=== PATIENT | male | born 1955 | race Caucasian/White ===

== ENCOUNTER 2020-01-07 08:26 | Outpatient (CLI) | payer MEDICARE, SELFPAY ==
--- NOTE | ~2020-01-07 | CT_ITS ---
EXAMINATION:CT chest wo con DATE: 01/07/2020 08:52 INDICATION: Pulmonary nodule. TECHNIQUE: Computed tomography (CT) of the chest was performed without intravenous contrast. Automate d exposure control and iterative reconstruction technique were employed. The dose-length product (DLP ) was 184.89 mGy-cm. COMPARISON: Chest CT 01/16/2019, CT abdomen and pelvis 06/09/2018 FINDINGS: There is mild emphysema. There is a 4 mm nodule in right lower lobe, stable from 06/09/2018 . There is mild atelectasis bilaterally. There are a few scattered 2-3 mm pulmonary nodules, stable f rom 01/16/2019. No pleural effusion. The heart size is normal. There are coronary artery calcification s. No pericardial effusion. There are changes of coronary artery bypass grafting. There is mild thora cic spondylosis. IMPRESSION: 1. Stable small pulmonary nodules, likely benign. 2. Mild emphysema. Reviewed, dictated and finalized at location A.
== END 2020-01-07 08:27 | disposition home or self-care (01) ==
PROVIDERS: PCP Internal Medicine; Visit Provider Internal Medicine Pulmonary Disease
DX: R91.1 Solitary pulmonary nodule (principal)
CPT/HCPCS: 71250

== ENCOUNTER 2020-02-18 16:47 | Outpatient (CLI) | payer MEDICARE, SELFPAY ==
--- NOTE | ~2020-02-18 | XR_ITS ---
XR chest 2V DATE: 02/18/2020 17:07 INDICATION: Shortness of breath for 2 weeks. Open heart surgery in June. Possible lung nodules. TECHNIQUE: PA and lateral views COMPARISON: 01/07/2020 CT chest FINDINGS: Status post sternotomy/CABG. Normal heart size. No hilar or mediastinal enlargement. No pulmonary infiltrate or consolidation, pleural effusion or pulmonary vascular congestion or pneumo thorax. IMPRESSION: No active cardiopulmonary disease Reviewed, dictated and finalized at location A.
[2020-02-18 17:03] LABS: Basophils Absolute Auto 0.03 K/mm3 (0.00-0.10); Basophils Percent Auto 0.5 % (0.0-1.0); Eosinophils Absolute Auto 0.13 K/mm3 (0.02-0.50); Eosinophils Percent Auto 2.3 % (1.0-6.0); Hematocrit 44.6 % (37.0-46.0); Hemoglobin 14.9 g/dL (12.4-15.3); Immature Granulocyte Absolute 0.01 K/mm3 (0.00-0.00); Immature Granulocyte Percent A 0.2 % (0.0-0.0); Lymphocytes Absolute Auto 1.63 K/mm3 (1.10-4.50); Lymphocytes Percent Auto 28.4 % (18.0-42.0); Mean Corpuscular HGB Conc 33.4 g/dL (32.0-36.0); Mean Corpuscular Hemoglobin 30.5 pg (27.0-31.0); Mean Corpuscular Volume 91.2 fL (78.0-102.0); Mean Platelet Volume 10.2 fl (8.7-11.0); Monocytes Absolute Auto 0.81 K/mm3 (0.10-0.90); Monocytes Percent Auto 14.1 % (2.0-11.0); Neutrophils Absolute Auto 3.1 K/mm3 (1.7-7.2); Neutrophils Percent Auto 54.5 % (50.0-70.0); Platelet Count Result 200 K/mm3 (150-420); Red Blood Count 4.89 M/mm3 (4.70-6.10); Red Cell Distribution Width 13.6 % (11.6-14.4); White Blood Count 5.7 K/mm3 (4.8-10.8)
[2020-02-18 17:19] LABS: Alanine Aminotransferase 26 U/L (16-63); Albumin Level 3.8 g/dL (3.4-5.0); Alkaline Phosphatase 56 U/L (46-116); Anion Gap 12.2 mmol/L (7-16); Aspartate Amino Transferase 14 U/L (15-37); Bilirubin,Total 0.5 mg/dL (0.00-1.00); Blood Urea Nitrogen 21 mg/dL (7-18); Calcium 8.8 mg/dL (8.5-10.1); Carbon Dioxide 29 mmol/L (21-32); Chloride 103 mmol/L (98-108); D Dimer 0.85 mg/L (0.19-0.50); Estimated Glomerular Filt Rate > 60; Glucose 95 mg/dL (70-99); Osmolality Calculated 293 mOsm/kg (285-295); Potassium 4.2 mmol/L (3.5-5.1); Sodium 140 mmol/L (136-145); Total Protein 7.6 g/dL (6.4-8.2)
--- NOTE | 2020-02-18 17:30 | ECG_ITS ---
Measurements Intervals [place] Rate: 56 P: 10 AK: 190 QRS: 17 QRSD: 103 T: 3 QT: 411 QTc: 399 Interpretive Statements SINUS BRADYCARDIA DELAYED PRECORDIAL R/S TRANSITION INFERIOR INFARCT, AGE INDETERMINATE BORDERLINE T WAVE ABNORMALITY- ANTERIOR LEADS ABNORMAL ECG Electronically Signed On 02-19-2020 8:39:12 CDT by Zack Aragon D.O.
[2020-02-18 17:35] LABS: BNP 54.4 pg/mL (0-100)
== END 2020-02-18 16:48 | disposition home or self-care (01) ==
LOC: CHSLAB 16:51
PROVIDERS: PCP Internal Medicine; Visit Provider Internal Medicine
DX: R06.00 Dyspnea, unspecified (principal); I25.10 Atherosclerotic heart disease of native coronary artery without angina pectoris; Z95.1 Presence of aortocoronary bypass graft
CPT/HCPCS: 36415; 71046; 80053; 83880; 85025; 85380; 93005

== ENCOUNTER 2020-02-19 12:00 | Outpatient (CLI) | payer MEDICARE, SELFPAY ==
--- NOTE | ~2020-02-19 | CT_ITS ---
EXAMINATION: CTA chest PE protocol EXAM DATE: 02/19/2020 12:54 INDICATION: Shortness of breath and positive d-dimer. Nodule. TECHNIQUE: Spiral CTA of the chest (pulmonary arteries) was performed with 100 cc Omnipaque 350 intr avenous contrast injection. Images were acquired during the pulmonary arterial phase. Coronal maxi mum intensity projection 3D-reconstructions were created by the technologist on dedicated workstation . Axial, coronal and sagittal reformatted images were reviewed. The dose-length product (DLP) for t his examination was 422.12 mGy-cm. The exposure was tailored according to patient size (auto mA exp osure control), and iterative reconstruction (ASIR) was used as additional dose reduction technique. Comparison is made to prior examination from 12/28/2019. FINDINGS: There is small filling defect extending into left upper lobe anterior segmental pulmonary artery, best seen on axial image 104, appearance most consistent with subacute pulmonary embolism. Pu lmonary arteries are well evaluated and otherwise clear. No thoracic aortic dissection. There is 4 m m right lower lobe nodule, the largest nodule identified, unchanged. No suspicious pulmonary nodules. Some bilateral upper lobe paraseptal emphysema. There are no pleural or pericardial effusions. Tr acheobronchial tree is patent. There is no mediastinal, hilar or axillary lymphadenopathy. There is no pneumothorax. Heart normal in size. There are sternotomy wires, and cardiac/coronary surgic al changes. Correlate with prior history. Upper abdomen is unremarkable. There is thoracic spondyl osis without osteoblastic or osteolytic lesions identified. IMPRESSION: Small left upper lobe segmental filling defect most likely subacute pulmonary embolism. Reviewed, dictated and finalized at location B.
== END 2020-02-19 12:01 | disposition home or self-care (01) ==
LOC: CHSLAB 12:02
PROVIDERS: PCP Internal Medicine; Visit Provider Internal Medicine
DX: R06.02 Shortness of breath (principal); R79.1 Abnormal coagulation profile
CPT/HCPCS: 71275; Q9965

== ENCOUNTER 2020-02-27 11:21 | Outpatient (CLI) | payer MEDICARE, SELFPAY ==
[2020-02-27 11:42] LABS: Basophils Absolute Auto 0.04 K/mm3 (0.00-0.10); Basophils Percent Auto 0.7 % (0.0-1.0); Eosinophils Absolute Auto 0.11 K/mm3 (0.02-0.50); Eosinophils Percent Auto 1.9 % (1.0-6.0); Hematocrit 42.9 % (37.0-46.0); Immature Granulocyte Absolute 0.02 K/mm3 (0.00-0.00); Immature Granulocyte Percent A 0.3 % (0.0-0.0); Lymphocytes Absolute Auto 1.29 K/mm3 (1.10-4.50); Lymphocytes Percent Auto 22.1 % (18.0-42.0); Mean Corpuscular Hemoglobin 31.7 pg (27.0-31.0); Mean Corpuscular Volume 90.7 fL (78.0-102.0); Mean Platelet Volume 10.5 fl (8.7-11.0); Monocytes Absolute Auto 0.61 K/mm3 (0.10-0.90); Monocytes Percent Auto 10.4 % (2.0-11.0); Neutrophils Absolute Auto 3.8 K/mm3 (1.7-7.2); Neutrophils Percent Auto 64.6 % (50.0-70.0); Platelet Count Result 204 K/mm3 (150-420); Red Blood Count 4.73 M/mm3 (4.70-6.10); Red Cell Distribution Width 13.1 % (11.6-14.4); White Blood Count 5.8 K/mm3 (4.8-10.8)
[2020-03-01 03:07] LABS: Homocysteine 7.5 umol/L (<11.4)
[2020-03-01 20:39] LABS: Lupus dRVVT 1:1 Mix Interpreta Not Indicated; Lupus dRVVT Confirmation Negative (Negative); Lupus dRVVT Screen 54 sec (<=45); PTT-LA Screen 38 sec (<=40)
[2020-03-02 13:45] LABS: Protein S Antigen, Free 123 % normal (57-171); Protein S Antigen, Total 111 % normal (70-140)
[2020-03-02 20:00] LABS: Anti Cardio Antibody IgM <12 MPL (<=12); Anti Cardiolipin Antibody IgA <11 APL (<=11); Anti Cardiolipin Antibody IgG <14 GPL (<=14)
[2020-03-03 10:49] LABS: Factor VIII Activity 93 % normal (50-180)
[2020-03-08 04:11] LABS: Reference Lab Test Name FACTOR V LEIDEN
== END 2020-02-27 11:22 | disposition home or self-care (01) ==
PROVIDERS: PCP Internal Medicine; Visit Provider Internal Medicine
DX: I26.99 Other pulmonary embolism without acute cor pulmonale (principal); Z79.01 Long term (current) use of anticoagulants
CPT/HCPCS: 36415; 81240; 81241; 81291; 83090; 85025; 85240; 85300; 85301; 85303; 85305; 85306; 85307; 85597; 85613; 85730; 86146; 86147; 86148

== ENCOUNTER 2020-07-01 08:27 | Outpatient (CLI) | payer MEDICARE, SELFPAY | END 2020-07-01 08:28 | disposition home or self-care (01) | PROVIDERS: PCP Internal Medicine; Visit Provider Internal Medicine Pulmonary Disease | DX: J44.9 Chronic obstructive pulmonary disease, unspecified (principal) | CPT/HCPCS: 94060; 94726; 94729 ==

== ENCOUNTER 2020-07-21 08:35 | Outpatient (CLI) | payer MEDICARE, SELFPAY ==
--- NOTE | ~2020-07-21 | XR_ITS ---
XR chest 2V 07/21/2020 08:57 Indication: Left lung nodule. Shortness of breath. Cough. Procedure: 2 view chest Comparison: 02/18/2020 Findings: Heart size normal. Status post median sternotomy for CABG. No focal air space disease, pulm onary edema, pleural effusion or suspected pneumothorax. The lungs are hyperinflated which is consist ent with, but not diagnostic of chronic obstructive pulmonary disease. Impression: 1: No acute cardiopulmonary disease. Reviewed, dictated and finalized at location A. AISAL SPECIALIST Impression: 1: No acute cardiopulmonary disease.
== END 2020-07-21 08:36 | disposition home or self-care (01) ==
LOC: CHSLAB 08:38
PROVIDERS: PCP Internal Medicine; Visit Provider Internal Medicine Pulmonary Disease
DX: R05 Cough (principal)
CPT/HCPCS: 71046

== ENCOUNTER 2021-06-09 10:01 | Outpatient (CLI) | payer MEDICARE, SELFPAY ==
[2021-06-09 10:22] LABS: Basophils Absolute Auto 0.04 K/mm3 (0.00-0.10); Basophils Percent Auto 0.7 % (0.0-1.0); Eosinophils Absolute Auto 0.09 K/mm3 (0.02-0.50); Eosinophils Percent Auto 1.6 % (1.0-6.0); Hematocrit 44.4 % (37.0-46.0); Hemoglobin 14.7 g/dL (12.4-15.3); Immature Granulocyte Absolute 0.01 K/mm3 (0.00-0.00); Immature Granulocyte Percent A 0.2 % (0.0-0.0); Lymphocytes Absolute Auto 1.44 K/mm3 (1.10-4.50); Lymphocytes Percent Auto 25.1 % (18.0-42.0); Mean Corpuscular HGB Conc 33.1 g/dL (32.0-36.0); Mean Corpuscular Hemoglobin 30.2 pg (27.0-31.0); Mean Corpuscular Volume 91.2 fL (78.0-102.0); Mean Platelet Volume 10.6 fl (8.7-11.0); Monocytes Absolute Auto 0.76 K/mm3 (0.10-0.90); Monocytes Percent Auto 13.3 % (2.0-11.0); Neutrophils Absolute Auto 3.4 K/mm3 (1.7-7.2); Neutrophils Percent Auto 59.1 % (50.0-70.0); Platelet Count Result 175 K/mm3 (150-420); Red Blood Count 4.87 M/mm3 (4.70-6.10); Red Cell Distribution Width 13.2 % (11.6-14.4); White Blood Count 5.7 K/mm3 (4.8-10.8)
[2021-06-09 10:45] LABS: Appearance Urine Clear (Clear); Bilirubin Urine Negative (Negative); Blood Urine 2+ (Negative); Glucose Urine UA Negative (Negative); Ketones Urine Negative (Negative); Leukocyte Esterase Ur Negative (Negative); Nitrate Urine Negative (Negative); Protein Urine Negative (Negative); Specific Grav Ur >= 1.030 (1.010-1.020); Urobilinogen Urine 0.2 mg/dL (0.2-1.0)
[2021-06-09 10:46] LABS: Add Urine Microscopic? YES; Color Urine Light Yellow (Yellow); Squamous Epithelial Cell Urine None seen /hpf (Few); WBC Urine 0-3 /hpf (0-3)
[2021-06-09 10:47] LABS: Bacteria Urine 1+ /hpf; Mucus Urine Heavy /lpf
[2021-06-09 11:26] LABS: Alanine Aminotransferase 35 U/L (16-63); Albumin Level 3.7 g/dL (3.4-5.0); Alkaline Phosphatase 60 U/L (46-116); Anion Gap 9 mmol/L (8-16); Aspartate Amino Transferase 15 U/L (15-37); Bilirubin,Total 0.5 mg/dL (0.00-1.00); Blood Urea Nitrogen 16 mg/dL (7-18); Calcium 8.5 mg/dL (8.5-10.1); Carbon Dioxide 29 mmol/L (21-32); Chloride 104 mmol/L (98-108); Cholesterol 180 mg/dL (0-200); Estimated Glomerular Filt Rate > 60; Glucose 101 mg/dL (70-99); HDL Direct 57 mg/dL (40-60); LDL Cholesterol Calculated 88 mg/dL (<130); Osmolality Calculated 295 mOsm/kg (285-295); Potassium 4.4 mmol/L (3.5-5.1); Prostate Specific Antigen 1.4 ng/mL (< OR = 4.0); Sodium 142 mmol/L (136-145); Total Protein 6.6 g/dL (6.4-8.2); Triglycerides 174 mg/dL (0-150)
== END 2021-06-09 10:02 | disposition home or self-care (01) ==
LOC: CHSLAB 10:03
PROVIDERS: PCP Internal Medicine; Visit Provider Internal Medicine
DX: I25.10 Atherosclerotic heart disease of native coronary artery without angina pectoris (principal); I10 Essential (primary) hypertension; Z00.00 Encounter for general adult medical examination without abnormal findings; Z12.5 Encounter for screening for malignant neoplasm of prostate
CPT/HCPCS: 36415; 80053; 80061; 81001; 84153; 85025; G0103

== ENCOUNTER 2021-11-15 21:49 | Emergency (ER) | payer MEDICARE, OTHER, SELFPAY ==
--- NOTE | ~2021-11-15 | XR_ITS ---
XR chest 1V portable 11/15/2021 22:26 Indication: Chest pain Procedure: AP portable chest Comparison: Comparison to multiple prior studies sequentially, with oldest reviewed study dated 02/17. Findings: Status post median sternotomy for CABG. Left basilar atelectasis. No focal pneumonia, edema , significant effusion or pneumothorax. Impression: 1: Left basilar atelectasis. Reviewed, dictated and finalized at location A. Impression: 1: Left basilar atelectasis.
[2021-11-15 21:52] VITALS: BP 192/119; PULSE 58; RESP 16; TEMP 36.7; O2SAT 100
--- NOTE | 2021-11-15 21:53 | ECG_ITS ---
Measurements Intervals [place] Rate: 51 P: 14 ME: 174 QRS: 11 QRSD: 109 T: 79 QT: 395 QTc: 366 Interpretive Statements SINUS BRADYCARDIA INFERIOR MYOCARDIAL INFARCTION WITH POSTERIOR EXTENSION, POSSIBLY ACUTE [40+ ms Q WAVE AND/OR ST/T ABNORMALITY IN II/aVF] ACUTE SD ABNORMAL ECG COMPARED TO ECG 02/18/2020 17:13:18 NO SIGNIFICANT CHANGES Electronically Signed On 11-16-2021 9:03:16 CDT by Lee Addison M.D.
--- NOTE | 2021-11-15 21:54 | ED.CHESTPAIN ---
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 Onset (ago): minute(s) (45) Timing of current episode: constant Prior episodes: Yes Onset: during rest Pain location: substernal and left chest Pain radiation: right arm and left arm Pain scale (0-10): 9 Quality: tightness, sharp, similar to prior [place] and crushing Relieving factors: nothing Exacerbating factors: nothing Associated symptoms: nausea, diaphoresis and dyspnea Treatment prior to arrival: none Risk Factors Coronary artery disease risk factors: smoking history, hyperlipidemia and hypertension Related Data Home Medications Medication Instructions Recorded Confirmed apixaban [Eliquis] 5 mg PO DAILY 11/15/21 11/15/21 metoprolol succinate 50 mg PO DAILY 11/15/21 11/15/21 niacin 500 mg PO DAILY 11/15/21 11/15/21 pravastatin 80 mg PO DAILY 11/15/21 11/15/21 Allergies Allergy/AdvReac Type Severity Reaction Status Date / Time No Known Allergies Allergy Verified 11/15/21 22:18 Review of Systems Review of Systems: All systems reviewed & are unremarkable except as noted in HPI and below PMFSH Past Medical History Medical History (Updated 11/15/21 @ 22:50 by Eliezer Horn MD) Coronary artery disease Hyperlipidemia Hypertension Surgical History Surgical History (Updated 11/15/21 @ 22:51 by Eliezer Horn MD) History of heart bypass surgery x5 Social History Social History (Updated 11/15/21 @ 22:51 by Eliezer Horn MD) Smoking status: Former smoker Exam Const: General: alert and ill appearing acutely Nutritional Appearance: well nourished and obese centrally obese Orientation/consciousness: patient oriented x3 HENMT: Head: normal to inspection Ears: external ears normal Face and sinus: normal facial exam Mouth: Yes moist mucous membranes Eyes: Conjunctivae: conjunctivae normal Pupils: Equal, round and reactive pupils present EOM: EOMs intact bilaterally Neck: Neck: normal visual inspection Resp: Effort & Inspection: normal respiratory effort Auscultation: clear to auscultation bilaterally Cardio: Rate: regular rate Rhythm: regular rhythm GI: GI Palp: Yes Soft to palpation and No Tenderness to palpation present (GI) Auscultation: normal bowel sounds Back/Spine/Pelvis: Cervical Spine: cervical ROM normal Thoracic/Lumbar Spine: thoraco-lumbar ROM normal Skin: General skin exam: normal color Rashes: no rashes Neuro: General: patient oriented x3, moves all extremities, no meningeal signs, no focal motor deficits and CN's II-XI intact bilaterally Speech: normal speech Gait exam (Neuro): Normal gait present Extrem: General: normal to inspection and no clubbing, cyanosis or edema Psych: Appearance: grossly normal and well kempt Mental Status: mental status grossly normal Affect: normal affect Attitude: cooperative Thought content: Yes Normal thought content present Course Transfer Transfered to: [facility]: [facility] Accepting physician: Dr. River MDM - Chest Pain Lab Data Result diagrams: 11/15/21 22:09 11/15/21 22:09 Labs: Lab Results 11/15/21 11/15/21 11/15/21 Range/Units 22:08 22:09 22:09 WBC 8.3 (4.8-10.8) K/mm3 RBC 4.87 (4.70-6.10) M/mm3 Hgb 15.0 (12.4-15.3) g/dL Hct 45.2 (37.0-46.0) % MCV 92.8 (78.0-102.0) fL MCH 30.8 (27.0-31.0) pg MCHC 33.2 (32.0-36.0) g/dL RDW 13.2 (11.6-14.4) % Plt Count 214 (150-420) K/mm3 MPV 11.0 (8.7-11.0) fl Immature Gran % (Auto) 0.2 H (0.0-0.0) % Neut % (Auto) 55.6 (50.0-70.0) % Lymph % (Auto) 31.3 (18.0-42.0) % Lynn % (Auto) 10.5 (2.0-11.0) % Eos % (Auto) 1.8 (1.0-6.0
[2021-11-15] MEDS: NITROGLYCERIN SL 0.4 MG TABLET SUBLINGUAL (22:00)
[2021-11-15] MEDS: ASPIRIN 81 MG CHEWABLE TABLET 324 MG PO (22:05)
[2021-11-15 22:10] VITALS: BP 140/78; PULSE 49; RESP 16; O2SAT 100
[2021-11-15] MEDS: HEPARIN SODIUM 5,000 UNITS/ML VIAL 4000 UNITS IV PUSH (22:12)
[2021-11-15 22:13] LABS: Basophils Absolute Auto 0.05 K/mm3 (0.00-0.10); Basophils Percent Auto 0.6 % (0.0-1.0); Eosinophils Absolute Auto 0.15 K/mm3 (0.02-0.50); Eosinophils Percent Auto 1.8 % (1.0-6.0); Hematocrit 45.2 % (37.0-46.0); Immature Granulocyte Absolute 0.02 K/mm3 (0.00-0.00); Immature Granulocyte Percent A 0.2 % (0.0-0.0); Lymphocytes Percent Auto 31.3 % (18.0-42.0); Mean Corpuscular HGB Conc 33.2 g/dL (32.0-36.0); Mean Corpuscular Hemoglobin 30.8 pg (27.0-31.0); Mean Corpuscular Volume 92.8 fL (78.0-102.0); Monocytes Absolute Auto 0.87 K/mm3 (0.10-0.90); Monocytes Percent Auto 10.5 % (2.0-11.0); Neutrophils Absolute Auto 4.6 K/mm3 (1.7-7.2); Neutrophils Percent Auto 55.6 % (50.0-70.0); Platelet Count Result 214 K/mm3 (150-420); Red Blood Count 4.87 M/mm3 (4.70-6.10); Red Cell Distribution Width 13.2 % (11.6-14.4); White Blood Count 8.3 K/mm3 (4.8-10.8)
[2021-11-15 22:15] VITALS: BP 128/73; BP 189/109; PULSE 52; PULSE 58; RESP 16; O2SAT 100
[2021-11-15] MEDS: MORPHINE SULFATE (*CRX) 4 MG/ML INJ 7 MG IV PUSH (22:15)
[2021-11-15] MEDS: CLOPIDOGREL BISULFATE 75 MG TABLET 600 MG PO (22:16)
[2021-11-15] MEDS: PANTOPRAZOLE SODIUM IV 40 MG VIAL IV PUSH (22:22)
[2021-11-15] MEDS: HEPARIN SOD/D5W 100 UNITS/ML 25,000 UNITS/250 ML BAG 9.72 UNITS (22:25)
[2021-11-15 22:29] VITALS: BP 128/70; PULSE 48; RESP 14; O2SAT 100
[2021-11-15 22:29] LABS: Prothrombin Time 10.4 Seconds (9.50-12.10)
[2021-11-15 22:30] LABS: Partial Thromboplastin Time 25.9 SEC (23.90-30.70)
[2021-11-15 22:30] LABS: Alanine Aminotransferase 26 U/L (16-63); Albumin Level 3.6 g/dL (3.4-5.0); Alkaline Phosphatase 78 U/L (46-116); Anion Gap 11 mmol/L (8-16); Aspartate Amino Transferase 13 U/L (15-37); Bilirubin,Total 0.3 mg/dL (0.00-1.00); Blood Urea Nitrogen 23 mg/dL (7-18); Calcium 8.6 mg/dL (8.5-10.1); Carbon Dioxide 26 mmol/L (21-32); Chloride 105 mmol/L (98-108); Estimated Glomerular Filt Rate > 60; Glucose 134 mg/dL (70-99); Osmolality Calculated 299 mOsm/kg (285-295); Potassium 3.6 mmol/L (3.5-5.1); Sodium 142 mmol/L (136-145); Total Protein 7.1 g/dL (6.4-8.2); Troponin I 12.8 ng/L (0.00-60.4)
[2021-11-15 22:33] LABS: D Dimer 0.23 mg/L (0.19-0.50)
--- NOTE | 2021-11-15 23:14 | PC.NURSE ---
2200 NITRO X1 GIVEN 05/08 2205 NITRO X1 GIVEN 04/07 2210 NITRO X1 GIVEN 03/07 2215 MORPHINE 7MG GIVEN 01/05 UPON DC PT REPORTS PAIN IS DOWN TO 5/10 UPON DC, HOWEVER REMAINS UNCOMFORTABLE AND IN DISTRESS. HEPARIN DRIP IS INFUSING UPON DC. REPORT TO ARIEL WILDER IN ICU AT [place] WAS GIVEN. PT HAS TAKEN SHOES, SOCKS, BLACK SHIRT AND SHORTS WITH HIS PERSON, WALLET WAS GIVEN TO A FAMILY MEMBER.
== END 2021-11-15 22:29 | disposition short-term general hospital (02) ==
PROVIDERS: Emergency Provider Emergency Medicine; PCP Internal Medicine
DX: I21.9 Acute myocardial infarction, unspecified (principal); I25.10 Atherosclerotic heart disease of native coronary artery without angina pectoris; E78.5 Hyperlipidemia, unspecified; I10 Essential (primary) hypertension
CPT/HCPCS: 36415; 71045; 80053; 84484; 85025; 85380; 85610; 85730; 93005; 96374; 96375; 99285; A9270; C9113; J1644; J2270

== ENCOUNTER 2021-11-16 03:29 | Inpatient (IN) | payer MEDICARE, SELFPAY ==
--- NOTE | 2021-11-15 23:21 | PM.CNCAR ---
Assessment and Plan Additional Plan STEMI INF POST wall, Hx of CABG * 5, AF on eliquis. Plan emergency LHC, heparin, ASA and Plavix, statin History of Present Illness History of Present Illness Consult date/time: 11/15/21 23:21 Consult reason: chest pain Reason For Visit: STEMI Narrative: acute chest pain started at 9 Pm, sever, retrosternal radites to arms associated with sweating and nausea. In OSH he was noted to have inf wall STEMI. He was started on heparin bolus infusion, NTG and plavix. He was on eliquis at home for AF. He had Hx of CABG 3 years ago * 5 in [facility]. Review of Systems Review of Systems: All systems reviewed & are unremarkable except as noted in HPI and below PMFSH Past Medical History Medical History (Updated 11/15/21 @ 22:50 by Eliezer Horn MD) Coronary artery disease Hyperlipidemia Hypertension Surgical History Surgical History (Updated 11/15/21 @ 22:51 by Eliezer Horn MD) History of heart bypass surgery x5 Social History Social History (Updated 11/15/21 @ 22:51 by Eliezer Horn MD) Smoking status: Former smoker Meds Home Medications and Allergies Home Medications Medication Instructions Recorded Confirmed Type apixaban [Eliquis] 5 mg PO DAILY 11/15/21 11/15/21 History metoprolol succinate 50 mg PO DAILY 11/15/21 11/15/21 History niacin 500 mg PO DAILY 11/15/21 11/15/21 History pravastatin 80 mg PO DAILY 11/15/21 11/15/21 History Allergies Allergy/AdvReac Type Severity Reaction Status Date / Time No Known Allergies Allergy Verified 11/15/21 22:18 Exam Const: General: in distress moderate and uncomfortable Other: Able to lie flat HENMT: General nose exam: Normal nares present and no epistaxis Mouth: Yes moist mucous membranes Eyes: Sclera: sclerae normal Pupils: Equal, round and reactive pupils present Neck: Neck: supple and no JVD Carotids: no bruits Resp: Auscultation: clear to auscultation bilaterally and lung sounds not diminished Other: No chest wall tenderness Cardio: Rate: regular rate Rhythm: regular rhythm Heart sounds: no gallops, no murmurs and no rubs GI: GI Palp: Yes Soft to palpation and No Tenderness to palpation present (GI) Auscultation: normal bowel sounds Skin: General skin exam: normal color, rashes and/or lesions noted and no erythema Other: Warm Neuro: Cranial nerves: Yes Equal, round and reactive pupils present Speech: normal speech Other: No obvious focal deficit or facial asymmetry Extrem: General: no edema Other: Normal capillary refills Intact distal pulses. Results EKG Interpretation EKG shows: sinus rhythm (INF-POST wall STEMI)
[2021-11-16] VITALS (14 sets, daily range): BP systolic 107–164; BP diastolic 74–88; PULSE 52–92; RESP 15–26; TEMP 35.9–37; O2SAT 94–98; BMI 27.7
--- NOTE | 2021-11-16 | ECHO_ITS ---
Patient Info Name: Marcelo Davidson Age: 65 years : 1955 Gender: Male Ht: 68 in Wt: 180 lbs BSA: 2.00 m2 HR: 67 bpm BP: 147 / 79 mmHg Heart Rhythm: Sinus Rhythm Technical Quality: Good Exam Date: 11/16/2021 11:08 AM Exam Location: [facility] Pulmonary Exam Room: ICU6 Patient Status: Inpatient Admit Date: 11/16/2021 Staff Ordering Physician: Jered Tariq MD Child Support Investigator: Adriana Frederick RDCS Attending Provider: Jered Tariq MD Exam Type: CA echo doppler color flow Study Info Indications - STEMI Complete two-dimensional, color flow and Doppler transthoracic echocardiogram is performed. Summary 1. Complete two-dimensional, color flow and Doppler transthoracic echocardiogram is performed. 2. Left ventricular systolic function is normal, estimated at 55-60%. 3. The inferior segment is mildly hypodynamic. 4. Left atrial chamber dimension is mildly enlarged. 5. There is trace mitral valve regurgitation. 6. The aortic valve is normal. Left Ventricle Left ventricular chamber dimension is normal. Left ventricular systolic function is normal, estimated at 55-60%. The left ventricular diastolic function is grade I diastolic dysfunction. The inferior segment is mildly hypodynamic. Right Ventricle Right ventricular chamber dimension is normal. Left Atria Left atrial chamber dimension is mildly enlarged. Right Atria Right atrial chamber dimension is normal. Aortic Valve The aortic valve is normal. Pulmonic Valve The pulmonic valve is normal. Mitral Valve The mitral valve has normal leaflets. There is trace mitral valve regurgitation. Tricuspid Valve The tricuspid valve leaflets are normal. Pericardium/Pleural The pericardium appears normal. Aorta The aortic root size at the sinus of Valsalva is normal. Left Ventricular Outflow Tract Name Value Normal LVOT 2D LVOT Diameter 2.1 cm LVOT Doppler LVOT Peak Gradient 5 mmHg LVOT Mean Gradient 3 mmHg LVOT VTI 23 cm LVOT VTI/AV VTI Ratio 0.8 LVOT Stroke Volume 78 ml LVOT CO 15.6 l/min LVOT CI 7.8 l/min/m2 Pulmonic Valve Name Value Normal PV Doppler PV Peak Gradient 2 mmHg PV Regurgitation Doppler AZ Peak End Diastolic Velocity 117 cm/s Mitral Valve Name Value Normal MV Doppler
--- NOTE | 2021-11-16 00:43 | WPDCARDPROC ---
Cardiac Cath Procedure Note Date of procedure:: 11/16/21 Performing physician:: Jered Tariq MD Assessment and Plan Additional Plan PROCEDURE 1. LHC, bypass angiogram and coronary angiogram 2. PCI to culprit lesion of IA of SVG with 2 overlapping AIME 4.0 * 38 and 4.0 * 28 mm with use of spider filter and aspiration thrombectomy 3. IVUS to SVG INDICATION STEMI Inf post wall HISTORY 65 Yrs old male with Hx of CABG presented with acute chest pain and inf wall STEMI PROCEDURE DETAILS Consent obtained and access site prepped and draped in sterile fashion Tme out was done Sedation was done with versed 1 mg and fentanyl 50 mcg with continuos monitoring and supervision by myself and RN, start time 11:31 and end time 12:35 Access Obtained in Rt TRUCK RAILROAD AND BUS MOTOR MECHANIC artery with modified Seldinger technique Coronary angiogram was done using JL4 and JR4 and MP1 HEMODYNAMICS Aorta: 180/100 LV: 180/20 CORONARY ANGIOGRAM Left main: trifurcates into LAD, ramus and LCX LAD: proximal LAD stent with 99% ISR, stent appears in D1 is LANGUAGE ASSISTANT, D2 comes from LAD after stent and distal LAD and diagonal branches fill from grafts with competitive flow in LAD and D2 LCX: Non dominant vessel that gives OM branches, OM2 has proximal diffuse 90% stenosis and has competetive flow RCA: Dominant vessel that gives PDA and rPL. mid LAD stent with LANGUAGE ASSISTANT ISR. distal RCA fills from SVg graft to PDA and rPL and goes back to mid RCA stent. distal RCA with 80% stenosis. SVG to Diagonal and OM2, patent with no obstructive disease SVG to PDA and rPL with acute 100% total occlusion culprit lesion for STEMI GOMEZ to LAD patent with no obstructive disease PCI DETAILS #1 lesion: SVG to PDA and rPL Pre-intervention: ALIZA 0 flow, class C, culprit lesion for STEMI, SVG graft lesion Guide catheter: MP1 Guide wire: Spider Filter 6 mm used to cross lesion into distal vessel Balloon angioplasty: Emerge 3.0 * 15 mm Stent: 2 overlapping AIME XIENCE Skypoint 4.0 * 38 and 4.0 * 28 mm Post stent balloon dilation with Quantum [place] 4.0 * 15 with SANTO upto 22 with full expansion in stent expcept at ostium where there was waist even with highest pressure inflation at 22 SANTO. IVUS was done with theDropo and showed MLA 10 at end of intervention except at ostium where MLA 6.5. Aspiration thrombectomy was done with pneumpra catheter before removal fo filter Filter retreived successfully and then SVG wired with Concept[employer] Mathi wire and IC adenosine 200 mcg was given Post-intervention: residual 30% stenosis at ostium and 0% residusl stenosis at body, ALIZA 3 flow, SVG appears to have 70% stenosis at distal end anastomosis with rPL. COMPLICATION: None CONCLUSION Successful PCI to to SVG to RCA with 2 AIME 4.0 * 38 and 4.0 * 28 mm with use of spider filter and aspiration thrombectomy IVUS guided intervention SVG RECOMMENDATION DAPT Statin TTE Cardiac Rehab Consider RCA LANGUAGE ASSISTANT intervention if SVG graft disease is worse or ISR
--- NOTE | 2021-11-16 01:05 | ECG_ITS ---
Measurements Intervals [place] Rate: 51 P: 14 MI: 174 QRS: 11 QRSD: 109 T: 79 QT: 395 QTc: 366 Interpretive Statements SINUS BRADYCARDIA INFERIOR MYOCARDIAL INFARCTION WITH POSTERIOR EXTENSION, POSSIBLY ACUTE [40+ ms Q WAVE AND/OR ST/T ABNORMALITY IN II/aVF] ACUTE [place] ABNORMAL ECG COMPARED TO ECG 02/18/2020 17:13:18 NO SIGNIFICANT CHANGES Electronically Signed On 11-16-2021 9:02:56 CDT by Lee Addison M.D.
[2021-11-16] MEDS: SODIUM CHLORIDE 0.9% IV 1,000 ML 125 ML IV CONT (01:45)
--- NOTE | 2021-11-16 03:12 | ADMIMU ---
This patient, Marcelo Davidson, was admitted to IMU status, and placed in Intensive Care Unit-6. Patient/family oriented to hospital policies and general routines including ID bracelet, bed and alarms, visiting hours, pain management, procedures, bathroom and other care routines, personal items, smoking policy, room service/diet, and visiting hours. Valuables list has been completed. Information on how to activate the Rapid Response Team has been discussed. Patient/Family are encouraged to report perceived risks to care and to ask questions if they do not understand what they are told or what they should do.
--- NOTE | 2021-11-16 07:45 | WPDCNINT ---
Assessment and Plan Assessment and plan (1) Acute PR, inferior wall: Code(s): I21.19 - ST elevation (STEMI) myocardial infarction involving other coronary artery of inferior wall Status: Acute Assessment and Plan: Patient presented with chest pain, shortness of breath, diaphoresis, nausea at [facility], EKG showed acute inferior wall injury, patient was started on heparin infusion, given aspirin and Plavix and transferred to [facility] for cardiac catheterization which showed SVG to PDA and RPL with acute 100% total occlusion which was the culprit lesion for the STEMI. -status post successful PCI of SVG to RCA with AIME x2 with use of spider filter in aspiration thrombectomy, IVUS guided intervention of the SVG -cardiology following the patient closely, -continue aspirin, Plavix, SUJATHA-inhibitor, beta-tri, statin -echocardiogram has been ordered by Cardiology (2) History of atrial fibrillation: Code(s): Z86.79 - Personal history of other diseases of the circulatory system Status: Acute Assessment and Plan: Patient with history of atrial fibrillation, on Eliquis at home -Eliquis has been continued by Cardiology (3) Coronary artery disease: Code(s): I25.10 - Atherosclerotic heart disease of [place] coronary artery without angina pectoris Status: Acute Assessment and Plan: Patient with history of coronary artery disease status post CABG x5 3 years ago in [place], [place]. (4) Essential hypertension: Code(s): I10 - Essential (primary) hypertension Status: Acute Assessment and Plan: Continue lisinopril and beta-tri (5) Hyperlipidemia: Code(s): E78.5 - Hyperlipidemia, unspecified Status: Acute Assessment and Plan: Continue statin Additional Plan Discussed with patient updated with his condition and plan of care. Code status: Full code Critical care time spent: 41 minutes This dictation may have been done utilizing a voice recognition system. Attempts have been made to correct errors. However, there may be uncorrected grammatical, spelling, and recognition errors present. Due to a high probability of clinically significant, life threatening deterioration, the patient required my highest level of preparedness to intervene emergently and I personally spent this critical care time directly and personally managing the patient. This critical care time included obtaining a history; examining the patient; pulse oximetry; ordering and review of studies; arranging urgent treatment with development of a management plan; evaluation of patient's response to treatment; frequent reassessment; and discussions with other providers. It was exclusive of separately billable procedures and treating other patients and teaching time. Please see Assessment and Plan section and the rest of the note for further information on patient assessment and treatment Inside Sales Manager Consult Note Consult date: 11/16/21 Time Seen: 07:04 Reason for consult: Chest pain, inferior ST-elevation myocardial infarction status post stent x2 in SVG to RCA graft HPI: Marcelo Davidson is a 65 year old male with significant past medical history of coronary artery disease status post CABG x5 3 years ago in [facility], atrial fibrillation on Eliquis at home, hyperlipidemia, essential hypertension presented to the [facility] 08/31/2021 with complains of substernal chest pain, radiated to the right and left arm, pain was described as crushing, tightness, sharp, similar to the prior PR. Pain was associated with nausea, diaphoresis and dyspnea. Patient was given aspirin, nitroglycerin, Plavix and heparin bolus infusion and transferred to [facility] for cardiac catheterization for acute inferior myocardial infarction. EKG showed acute inferior wall injury. Patient is status post PTCA/PCI with stent x2 in SVG to RCA graft, IV U/S guided intervent
[2021-11-16] MEDS: PRAVASTATIN SODIUM 20 MG TABLET 80 MG PO (08:38)
[2021-11-16] MEDS: APIXABAN 5 MG TABLET PO ×2 (08:38→21:30)
[2021-11-16] MEDS: PANTOPRAZOLE 40 MG TABLET PO (08:38)
[2021-11-16] MEDS: METOPROLOL TARTRATE 50 MG TAB PO ×2 (08:38→21:30)
[2021-11-16] MEDS: CLOPIDOGREL BISULFATE 75 MG TABLET PO (08:38)
[2021-11-16] MEDS: ASPIRIN 81 MG ENTERIC TABLET PO (08:38)
[2021-11-16] MEDS: lisinopriL 10 MG TABLET PO (08:38)
--- NOTE | 2021-11-16 11:09 | PM.PNCARD ---
Progress Note: A&P Assessment and Plan (1) Acute OR, inferior wall: Code(s): I21.19 - ST elevation (STEMI) myocardial infarction involving other coronary artery of inferior wall Status: Acute Assessment and Plan: Presented with chest pain, diaphoresis, and nausea. EKG with ST elevations in leads II, III and aVF consistent with inferior OR. Patient was taken emergently to the cardiac tender labor for coronary angiography. He was found to have 100% total occlusion of the SVG to PDA and rPL which was the culprit lesion for STEMI. This was treated with 2 overlapping drug eluting stents as well as aspiration thrombectomy. Dual anti-platelet therapy with aspirin, Plavix Continue statin. Will shift him from pravastatin to rosuvastatin as his LDL was not at goal. Continue metoprolol Continue lisinopril Likely discharge home tomorrow if he remains stable. He is to follow-up with his primary marine engineering consultant in [facility]. 2D echocardiogram will be reviewed. Further recommendations to follow review of that study. (2) Coronary artery disease: Code(s): I25.10 - Atherosclerotic heart disease of [place] coronary artery without angina pectoris Status: Acute Assessment and Plan: History of CAD with CABG in 2019. (3) Hyperlipidemia: Code(s): E78.5 - Hyperlipidemia, unspecified Status: Acute Assessment and Plan: Will shift to him from pravastatin to rosuvastatin 20 mg daily (4) Essential hypertension: Code(s): I10 - Essential (primary) hypertension Status: Acute Assessment and Plan: Reasonably controlled. (5) Chronic anticoagulation: Code(s): Z79.01 - long term care social worker (current) use of anticoagulants Status: Acute Assessment and Plan: Patient is on apixaban 5 mg b.i.d.. Patient states that he was placed on this by his primary marine engineering consultant because of a concern for a pulmonary embolism. Patient states that he has been taking apixaban since 2020. Explained to patient that being on dual anti-platelet therapy in addition to anticoagulation is not ideal and increases bleeding risk. ? discontinue apixaban at discharge Additional Plan PROCEDURE 1. LHC, bypass angiogram and coronary angiogram 2. PCI to culprit lesion of OR of SVG with 2 overlapping AIME 4.0 * 38 and 4.0 * 28 mm with use of spider filter and aspiration thrombectomy 3. IVUS to SVG INDICATION STEMI Inf post wall HISTORY 65 Yrs old male with Hx of CABG presented with acute chest pain and inf wall STEMI PROCEDURE DETAILS Consent obtained and access site prepped and draped in sterile fashion Tme out was done Sedation was done with versed 1 mg and fentanyl 50 mcg with continuos monitoring and supervision by myself and RN, start time 11:31 and end time 12:35 Access Obtained in Rt FORK LIFT MECHANIC artery with modified Seldinger technique Coronary angiogram was done using JL4 and JR4 and MP1 HEMODYNAMICS Aorta: 180/100 LV: 180/20 CORONARY ANGIOGRAM Left main: trifurcates into LAD, ramus and LCX LAD: proximal LAD stent with 99% ISR, stent appears in D1 is WEIGHT RECORDER, D2 comes from LAD after stent and distal LAD and diagonal branches fill from grafts with competitive flow in LAD and D2 LCX: Non dominant vessel that gives OM branches, OM2 has proximal diffuse 90% stenosis and has competetive flow RCA: Dominant vessel that gives PDA and rPL. mid LAD stent with WEIGHT RECORDER ISR. distal RCA fills from SVg graft to PDA and rPL and goes back to mid RCA stent. distal RCA with 80% stenosis. SVG to Diagonal and OM2, patent with no obstructive disease SVG to PDA and rPL with acute 100% total occlusion culprit lesion for STEMI GOMEZ to LAD patent with no obstructive disease PCI DETAILS #1 lesion: SVG to PDA and rPL Pre-intervention: ALIZA 0 flow, class C, culprit lesion for STEMI, SVG graft lesion Guide catheter: MP1 Guide wire: Spider Filter 6 mm used to cross lesion into distal vessel Balloon angioplasty: Emerge 3.0 * 15
[2021-11-16] MEDS: ACETAMINOPHEN 325 MG TABLET 650 MG PO (16:55)
[2021-11-17] VITALS: BP 146/78; PULSE 58; RESP 17; TEMP 35.9; O2SAT 95
[2021-11-17 02:00] VITALS: PULSE 70
[2021-11-17 04:00] VITALS: BP 128/70; PULSE 65; PULSE 70; RESP 21; TEMP 36.4; TEMP 36.6; O2SAT 94
[2021-11-17 06:00] VITALS: PULSE 61
[2021-11-17 08:00] VITALS: BP 125/72; PULSE 62; RESP 19; TEMP 36.9; O2SAT 95
[2021-11-17] MEDS: APIXABAN 5 MG TABLET PO (08:18)
[2021-11-17] MEDS: lisinopriL 10 MG TABLET PO (08:18)
[2021-11-17] MEDS: ASPIRIN 81 MG ENTERIC TABLET PO (08:18)
[2021-11-17] MEDS: CLOPIDOGREL BISULFATE 75 MG TABLET PO (08:18)
[2021-11-17] MEDS: METOPROLOL TARTRATE 50 MG TAB PO (08:18)
[2021-11-17] MEDS: ROSUVASTATIN 10 MG TABLET 20 MG PO (08:18)
[2021-11-17] MEDS: PANTOPRAZOLE 40 MG TABLET PO (08:18)
--- NOTE | 2021-11-17 08:24 | PM.DS ---
DS: Admitting Diagnosis Discharge Date 11/17/2021 Admitting Diagnosis STEMI DS: Discharge Diagnosis Discharge Diagnosis (1) Acute MO, inferior wall: Code(s): I21.19 - ST elevation (STEMI) myocardial infarction involving other coronary artery of inferior wall Status: Acute Assessment and Plan: Presented with chest pain, diaphoresis, and nausea. EKG with ST elevations in leads II, III and aVF consistent with inferior MO. Patient was taken emergently to the cardiac cardiac cath technologist for coronary angiography. He was found to have 100% total occlusion of the SVG to PDA and rPL which was the culprit lesion for STEMI. This was treated with 2 overlapping drug eluting stents as well as aspiration thrombectomy. Dual anti-platelet therapy with aspirin, Plavix Continue statin. Continue metoprolol Continue lisinopril He had an 8 beat run of nonsustained V-tach last night while he was sleeping. Electrolytes WNL this morning. Continue beta-tri. Patient wishes to transfer his care from [facility] to our group. We will ensure that he has follow-up in our office within 2-3 weeks. Echocardiogram showed normal LV systolic function with an EF of 55-60%. He does have grade 1 diastolic dysfunction. No significant valve abnormalities. (2) Coronary artery disease: Code(s): I25.10 - Atherosclerotic heart disease of [place] coronary artery without angina pectoris Status: Acute Assessment and Plan: History of CAD with CABG in 2019. (3) Hyperlipidemia: Code(s): E78.5 - Hyperlipidemia, unspecified Status: Acute Assessment and Plan: Will shift to him from pravastatin to rosuvastatin 20 mg daily (4) Essential hypertension: Code(s): I10 - Essential (primary) hypertension Status: Acute Assessment and Plan: Reasonably controlled. (5) Chronic anticoagulation: Code(s): Z79.01 - buttermaker continuous churn (current) use of anticoagulants Status: Acute Assessment and Plan: Patient is on apixaban 5 mg b.i.d.. Patient states that he was placed on this by his primary coremaker because of a concern for a pulmonary embolism. Patient states that he has been taking apixaban since 2019. Explained to patient that being on dual anti-platelet therapy in addition to anticoagulation is not ideal and increases bleeding risk. Rec'd records from Dr. Matthew's office - apixaban indication for PE in 2020. Will d/c apixaban at discharge, continue ASA, plavix. DS: Summary Hospital Course Reason for hospitalization: Chest pain Hospital Course: Patient presented to outside hospital with complaints of severe, acute retrosternal chest pain that radiated to his arms. He was also experiencing diaphoresis and nausea. EKG taken at outside hospital showed inferior wall STEMI. He was started on a heparin infusion and given nitroglycerin and Plavix. Upon arrival at our facility he was taken emergently to the cardiac catheterization lab for coronary angiogram. He was found to have a 100% total occlusion of the SVG to PDA and rPL which was the culprit lesion for STEMI. This was treated with 2 overlapping drug eluting stents as well as aspiration thrombectomy. He did experience any procedural complications. Recovered well after the procedure. He has remained free from chest pain. Vital signs stable, sinus rhythm on telemetry with occasional PACs. Does not have any complaints this morning, feeling well and looking forward to going home. He is appropriate for discharge home today. He have outpatient follow-up in our office. Time Spent with Patient Time attestation: Total time spent providing and/or coordinating discharge services: 48 minutes Exam Const: General: comfortable, no acute distress, alert and awake HENMT: General nose exam: Normal nares present and no epistaxis Mouth: Yes moist mucous membranes Eyes: Sclera: sclerae normal Pupils: Equal, round and reactive pupils present Neck:
[2021-11-17 09:15] LABS: Hematocrit 41.6 % (42.0-52.0); Hemoglobin 13.9 g/dL (14.0-18.0); Mean Corpuscular HGB Conc 33.4 g/dl (32-36); Mean Corpuscular Hemoglobin 30.5 pg (26-34); Mean Corpuscular Volume 91.4 fl (80-100); Mean Platelet Volume 10.7 fl (7.4-10.4); Platelet Count Result 171 k/mm3 (150-375); Red Blood Count 4.55 M/mm3 (4.6-6.20); Red Cell Distribution Width 13.6 % (11.5-14.5); White Blood Count 6.8 K/mm3 (4.5-10.0)
[2021-11-17 09:24] LABS: Anion Gap 4 mmol/L (8-16); Blood Urea Nitrogen 11 mg/dL (9-20); Calcium 8.3 mg/dL (8.4-10.2); Carbon Dioxide 28 mmol/L (22-30); Chloride 104 mmol/L (98-107); Estimated CRCL calculation 75 ml/min; Estimated Glomerular Filt Rate > 60; Glucose 141 mg/dL (65-110); Potassium 3.9 mmol/L (3.4-5.0); Sodium 136 mmol/L (137-145)
[2021-11-17 10:00] VITALS: PULSE 65
[2021-11-17 10:45] LABS: Activated Clotting Time 160 SEC (74-137)
[2021-11-17 10:46] LABS: Activated Clotting Time 220 SEC (74-137)
[2021-11-17 10:46] LABS: Activated Clotting Time 184 SEC (74-137)
[2021-11-17 10:47] LABS: Activated Clotting Time 214 SEC (74-137)
[2021-11-17 10:48] LABS: Activated Clotting Time 237 SEC (74-137)
== END 2021-11-17 12:25 | disposition home or self-care (01) | DRG 247 ==
PROVIDERS: Admitting Provider Internal Medicine Interventional Cardiology; PCP Internal Medicine; Visit Provider Nurse Practitioner
PROC: 4A023N7 Measurement of Cardiac Sampling and Pressure, Left Heart, Percutaneous Approach (ICD-10-PCS; CPT 93459; principal; 2021-11-15 23:15)
DX: I21.19 ST elevation (STEMI) myocardial infarction involving other coronary artery of inferior wall (principal); T82.858A Stenosis of other vascular prosthetic devices, implants and grafts, initial encounter; E78.5 Hyperlipidemia, unspecified; I10 Essential (primary) hypertension; I25.10 Atherosclerotic heart disease of native coronary artery without angina pectoris; Z95.1 Presence of aortocoronary bypass graft; Y83.2 Surgical operation with anastomosis, bypass or graft as the cause of abnormal reaction of the patient, or of later complication, without mention of misadventure at the time of the procedure; Z86.79 Personal history of other diseases of the circulatory system; Z87.891 Personal history of nicotine dependence; Z79.82 Long term (current) use of aspirin; Z79.01 Long term (current) use of anticoagulants; Z79.899 Other long term (current) drug therapy
CPT/HCPCS: 36415; 80048; 83735; 85027; 92978; 93005; 93306; 93459; A9270; C1725; C1753; C1757; C1760; C1769; C1874; C1884; C1887; C1894; C9606; G0269; J0153; J0583; J1644; J2250; J3010; J7030; J7040

== ENCOUNTER 2022-07-29 09:42 | Outpatient (CLI) | payer MEDICARE, SELFPAY ==
[2022-07-29 09:56] LABS: Basophils Absolute Auto 0.04 K/mm3 (0.00-0.10); Basophils Percent Auto 0.7 % (0.0-1.0); Eosinophils Absolute Auto 0.13 K/mm3 (0.02-0.50); Eosinophils Percent Auto 2.4 % (1.0-6.0); Hematocrit 45.2 % (37.0-46.0); Hemoglobin 14.9 g/dL (12.4-15.3); Immature Granulocyte Absolute 0.01 K/mm3 (0.00-0.00); Immature Granulocyte Percent A 0.2 % (0.0-0.0); Lymphocytes Absolute Auto 1.36 K/mm3 (1.10-4.50); Lymphocytes Percent Auto 24.6 % (18.0-42.0); Mean Corpuscular Volume 90.9 fL (78.0-102.0); Mean Platelet Volume 10.6 fl (8.7-11.0); Monocytes Absolute Auto 0.74 K/mm3 (0.10-0.90); Monocytes Percent Auto 13.4 % (2.0-11.0); Neutrophils Absolute Auto 3.2 K/mm3 (1.7-7.2); Neutrophils Percent Auto 58.7 % (50.0-70.0); Platelet Count Result 209 K/mm3 (150-420); Red Blood Count 4.97 M/mm3 (4.70-6.10); Red Cell Distribution Width 13.9 % (11.6-14.4); White Blood Count 5.5 K/mm3 (4.8-10.8)
[2022-07-29 10:53] LABS: Alanine Aminotransferase 34 U/L (16-63); Albumin Level 3.9 g/dL (3.4-5.0); Alkaline Phosphatase 56 U/L (46-116); Anion Gap 8 mmol/L (8-16); Aspartate Amino Transferase 13 U/L (15-37); Bilirubin,Total 1.3 mg/dL (0.00-1.00); Blood Urea Nitrogen 19 mg/dL (7-18); Calcium 8.7 mg/dL (8.5-10.1); Carbon Dioxide 31 mmol/L (21-32); Chloride 105 mmol/L (98-108); Cholesterol 138 mg/dL (0-200); Estimated Glomerular Filt Rate > 60; Glucose 99 mg/dL (70-99); HDL Direct 63 mg/dL (40-60); LDL Cholesterol Calculated 56 mg/dL (<130); Osmolality Calculated 300 mOsm/kg (285-295); Potassium 4.6 mmol/L (3.5-5.1); Sodium 144 mmol/L (136-145); Total Protein 7.1 g/dL (6.4-8.2); Triglycerides 93 mg/dL (0-150)
[2022-07-29 15:00] LABS: CRP < 0.5 mg/dL (0.0-0.9)
== END 2022-07-29 09:43 | disposition home or self-care (01) ==
LOC: CHSLAB 09:44
PROVIDERS: PCP Internal Medicine; Visit Provider Internal Medicine
DX: E78.5 Hyperlipidemia, unspecified (principal); I10 Essential (primary) hypertension
CPT/HCPCS: 36415; 80053; 80061; 85025; 86140

== ENCOUNTER 2022-10-29 01:56 | Day surgery (SDC) | payer MEDICARE, OTHER, SELFPAY ==
[2022-10-28 13:30] VITALS: BMI 25.9
[2022-10-29] VITALS (17 sets, daily range): BP systolic 125–161; BP diastolic 68–90; PULSE 54–63; RESP 12–18; TEMP 36.3; O2SAT 91–99; BMI 26.1
--- NOTE | 2022-10-29 07:19 | SUR.PREOP ---
pt was pre treated for iodine allergy with prednisone and Benadryl
[2022-10-29 07:30] LABS: Basophils Percent Auto 0.2 % (0.2-1.2); Hematocrit 43.1 % (42.0-52.0); Hemoglobin 14.5 g/dL (14.0-18.0); Immature Granulocyte Absolute 0.01 K/mm3 (0.00-0.031); Immature Granulocyte Percent A 0.2 % (0-0.5); Lymphocytes Absolute Auto 0.58 K/mm3 (0.9-3.2); Lymphocytes Percent Auto 10.8 % (18.3-44.2); Mean Corpuscular HGB Conc 33.6 g/dl (32-36); Mean Corpuscular Hemoglobin 29.9 pg (26-34); Mean Corpuscular Volume 88.9 fl (80-100); Mean Platelet Volume 10.7 fl (7.4-10.4); Monocytes Absolute Auto 0.1 K/mm3 (0.1-0.6); Monocytes Percent Auto 1.3 % (2.6-8.5); Neutrophils Absolute Auto 4.7 K/mm3 (1.3-6.7); Neutrophils Percent Auto 87.5 % (45.5-73.1); Platelet Count Result 192 k/mm3 (150-375); Red Blood Count 4.85 M/mm3 (4.6-6.20); Red Cell Distribution Width 13.3 % (11.5-14.5); White Blood Count 5.4 K/mm3 (4.5-10.0)
[2022-10-29 07:37] LABS: Anion Gap 6 mmol/L (8-16); Blood Urea Nitrogen 19 mg/dL (9-20); Carbon Dioxide 24 mmol/L (22-30); Chloride 104 mmol/L (98-107); Estimated CRCL calculation 84 ml/min; Estimated Glomerular Filt Rate > 60; Glucose 166 mg/dL (65-110); Potassium 4.3 mmol/L (3.4-5.0); Sodium 134 mmol/L (137-145)
--- NOTE | 2022-10-29 09:31 | WPDMODSED ---
Moderate Sedation Note-Pt Data Patient Data Diagnosis: Intermittent chest pain /nonexertional but nitrate responsive history of coronary disease with previous CABG and PCI Present Complaint: intermittent chest and bilateral arm pain Procedure to be performed/Plan: coronary angiography vein graft angiography DEACON graft angiography Allergies Allergy/AdvReac Type Severity Reaction Status Date / Time Iodinated Contrast Media Allergy Hives Verified 10/29/22 07:07 Home Medications Medication Instructions Recorded Confirmed Type Adult Low Dose Aspirin 81 mg PO DAILY 11/16/21 10/28/22 History clopidogrel 75 mg tablet 75 mg PO QAM 30 days #30 tabs 11/17/21 10/28/22 Rx lisinopril 10 mg tablet 10 mg PO DAILY 30 days #30 tabs 11/17/21 10/28/22 Rx metoprolol tartrate 50 mg tablet 25 mg PO Q12HR 10/28/22 10/28/22 History rosuvastatin 20 mg tablet 20 mg PO DAILY 10/28/22 10/28/22 History tamsulosin 0.4 mg capsule 0.4 mg PO HS 10/28/22 10/28/22 History Current Medications: Active Medications Sodium Chloride (Normal Saline Iv) 500 mls @ 100 mls/hr IV CONT .Q5H KULDEEP Sedation/Anesthesia: No previous sedation/anesthesia problems (including family history). [facility] Past Medical History Medical History (Updated 11/16/21 @ 15:03 by JACOB Marina) Coronary artery disease Hyperlipidemia Hypertension Surgical History Surgical History History of heart bypass surgery x5 Social History Social History (Updated 11/16/21 @ 02:27 by Angelica Shook RN) Smoking packs per day: 0.5 Smoking cigarettes per day: 10.0 Years smoked: 40 Smoking pack-years: 20.00 Smoking status: Former smoker Tobacco type: cigarettes Smoking end date: 07/02/19 Additional smoking assessment comments: quit 4 years ago Alcohol intake: current Drinks per week: 3 Alcohol use details: infrequent Substance use: former Substance use type: marijuana Other substance usage details: thc gummies for recreation Living arrangements: with family Sexual Orientation (if Verbalized by the Patient): Straight or Heterosexual Spiritual care concerns: No Mod Sed Physical Exam Physical Exam Pre Procedural Exam: Normal: Appearance, Neck, Throat, Airway, Lungs, Heart Size, Heart Rate, Heart Rhythm, Neuro Exam and Extremities Hours since solid foods: 12 Hours since liquid intake: 12 Mallampati Classification: class II Internal Medicine - PN: Obj Da Vital Signs Vital Signs: Vital Signs - 24 hr 10/29/22 07:10 Temperature 36.3 C L Pulse Rate 63 Respiratory Rate 16 Blood Pressure 151/76 H Pulse Oximetry 96 Oxygen Delivery Room Air Meds/Results Medications: Active Medications Generic Name Dose Route Start Last Admin Trade Name Burton PRN Reason Stop Dose Admin Sodium Chloride 500 mls @ 100 mls/hr 10/29/22 07:00 Normal Saline Iv IV CONT .Q5H KULDEEP Labs 10/29/22 07:06 10/29/22 07:06 Labs: Laboratory Results - last 24 hr 10/29/22 10/29/22 10/29/22 07:06 07:06 07:06 WBC 5.4 RBC 4.85 Hgb 14.5 Hct 43.1 MCV 88.9 MCH 29.9 MCHC 33.6 RDW 13.3 Plt Count 192 MPV 10.7 H Immature Gran % (Auto) 0.2 Neut % (Auto) 87.5 H Lymph % (Auto) 10.8 L Lares % (Auto) 1.3 L Eos % (Auto) 0.0 Baso % (Auto) 0.2 Lymph # (Auto) 0.58 L Lares # (Auto) 0.1 Eos # (Auto) 0.0 Baso # (Auto) 0.0 Abs Immat Gran (auto) 0.01 Absolute Neuts (auto) 4.7 Absolute Nucleated RBC 0.0 Nucleated RBC % 0.0 PT 13.0 INR 1.0 Sodium 134 L Potassium 4.3 Chloride 104 Carbon Dioxide 24 Anion Gap 6 L BUN 19 Creatinine 0.70 Estim Creat Clear Calc 84 Estimated GFR > 60 Glucose 166 H Calcium 9.0 ASA Classification/Sedation ASA Classification/Sedation ASA Class: III Emergent: No Risks: Risks, benefits and alternatives explained and p
--- NOTE | 2022-10-29 10:11 | WPDCARDPROC ---
Cardiac Cath Procedure Note Date of procedure:: 10/29/22 Performing physician:: Marcelo Ace MD Indication:: intermittent nonexertional chest pain which is nitrate responsive multivessel coronary disease with previous CABG and PCI Brief clinical history:: this is a 66-year-old man with multivessel disease. He was treated with PCI to the proximal LAD and mid right coronary artery most past. In 2019 he underwent 3 vessel bypass grafting because of multivessel disease. He has DEACON graft to the LAD and vein grafts to the circumflex and to the distal RCA. The patient was treated here at this hospital in the setting inferior wall [place]-elevation [place] 1 year ago and had subtotal occlusion of a long segment of the saphenous vein graft to the RCA which was treated with 2 overlapping 4 mm drug-eluting stents. He also has distal disease in the RPL branch as well as in 2 small OM circumflex branches. He is now reporting intermittent nonexertional right and left arm pain which she does report to be nitrate responsive. Procedure Procedure performed:: Coronary angiography vein graft angiography DEACON angiography Sedation/Medication given:: fentanyl 50 mg Versed 2 mg case start 9:39 a.m. case end time 10:07 a.m. sedation provided by Lynnette Garibay RN, trained observer Access site:: right femoral artery Estimated blood loss:: 25 cc Procedure note:: patient was brought to the cardiac catheterization lab in the postabsorptive state where the femoral triangle was prepared and draped in the usual fashion. Anesthesia was provided with 1% lidocaine after this the femoral artery was punctured and a 5 Beninese vascular sheath was placed. I then performed left coronary angiography using a 5 [place]inese FL4 catheter. Right coronary angiography was performed using a 5 [place] JR4 catheter. The same right coronary catheter was used to inject the vein graft to the circumflex and right coronary arteries. I used a 5 Beninese DEACON catheter to inject the left internal mammary artery to the LAD. Following this cineangiograms were reviewed and the case was terminated. the patient was taken to the holding area for manual sheath removal and post cath recovery. The procedure was well tolerated and uncomplicated he had no sign groin hematoma upon leaving the cardiac poultry farm laborer area. Findings:: Hemodynamics: Central aortic pressure is 144/70. The left ventricle was not entered during this procedure. The left main coronary artery is medium in caliber and is patent. It is moderately calcified. The left anterior descending is heavily calcified there is visible stent material in the proximal LAD. There is 99% stenosis in the proximal LAD stent with very sluggish flow distal to this. The mid LAD can be seen to be filling by the DEACON with competitive flow. Circumflex is a medium caliber artery which is moderately diffusely diseased. There are 3 marginal branches the that have moderate diffuse disease the 2nd of these has competitive filling from saphenous vein graft. The right coronary artery is a dominant to the posterior circulation RCA has stent serial visible in the 2nd portion. It is 100% occluded proximally. This is a chronic total occlusion. Selective injection of the saphenous vein graft to the circumflex shows it to be a large caliber segment of saphenous vein. It is widely patent and is anastomosed to the 2nd OM branch as described above. There are no stenoses or signs of degenerative disease in this graft. Selective injection of the saphenous vein graft to the right coronary artery shows it to be a medium caliber segment of saphenous vein. There is stent material from the ostium of this graft down to the distal segment of this graft was placed in October of 2021 during the acute emergency. The large majority of this is widely patent. The ostial portion of this has residual 60% stenosis which does appear angiographically to have a haz
--- NOTE | 2022-10-29 12:09 | SUR.PHASEII ---
patient is sitting up at 30 degrees, site wnl. waiting on lunch tray
== END 2022-10-29 15:55 | disposition home or self-care (01) ==
PROVIDERS: PCP Internal Medicine; Visit Provider Specialist
DX: I25.10 Atherosclerotic heart disease of native coronary artery without angina pectoris (principal); R07.9 Chest pain, unspecified; I25.2 Old myocardial infarction; Z95.5 Presence of coronary angioplasty implant and graft; Z95.1 Presence of aortocoronary bypass graft; I10 Essential (primary) hypertension; E78.5 Hyperlipidemia, unspecified; Z79.02 Long term (current) use of antithrombotics/antiplatelets; Z79.82 Long term (current) use of aspirin; Z87.891 Personal history of nicotine dependence; F12.90 Cannabis use, unspecified, uncomplicated
CPT/HCPCS: 36415; 80048; 85025; 85610; 93455; C1887; C1894; J1644; J2250; J3010; J7040

== ENCOUNTER 2023-11-11 08:59 | Outpatient (CLI) | payer MEDICARE, OTHER, SELFPAY ==
[2023-11-11 09:34] LABS: Basophils Absolute Auto 0.05 K/mm3 (0.00-0.10); Basophils Percent Auto 0.9 % (0.0-1.0); Eosinophils Absolute Auto 0.13 K/mm3 (0.02-0.50); Eosinophils Percent Auto 2.3 % (1.0-6.0); Hematocrit 43.6 % (37.0-46.0); Hemoglobin 14.7 g/dL (12.4-15.3); Immature Granulocyte Absolute 0.02 K/mm3 (0.00-0.00); Immature Granulocyte Percent A 0.3 % (0.0-0.0); Lymphocytes Absolute Auto 1.27 K/mm3 (1.10-4.50); Mean Corpuscular HGB Conc 33.7 g/dL (32-36); Mean Corpuscular Hemoglobin 30.1 pg (27.0-31.0); Mean Corpuscular Volume 89.2 fL (78.0-102.0); Mean Platelet Volume 10.4 fl (8.7-11.0); Monocytes Absolute Auto 0.58 K/mm3 (0.10-0.90); Monocytes Percent Auto 10.1 % (2.0-11.0); Neutrophils Absolute Auto 3.71 K/mm3 (1.70-7.20); Neutrophils Percent Auto 64.4 % (50.0-70.0); Platelet Count Result 192 K/mm3 (150-420); Red Blood Count 4.89 M/mm3 (4.70-6.10); White Blood Count 5.8 K/mm3 (4.8-10.8)
[2023-11-11 09:50] LABS: Appearance Urine Clear (Clear); Bilirubin Urine Negative (Negative); Blood Urine Negative (Negative); Color Urine Yellow (Yellow); Glucose Urine UA Negative (Negative); Ketones Urine Negative (Negative); Leukocyte Esterase Ur Negative (Negative); Nitrate Urine Negative (Negative); Protein Urine Negative (Negative); Specific Grav Ur >= 1.030 (1.010-1.020); Urobilinogen Urine 0.2 mg/dL (0.2-1.0)
[2023-11-11 09:58] LABS: Add Urine Microscopic? NO
[2023-11-11 10:15] LABS: Alanine Aminotransferase 29 U/L (16-63); Albumin Level 3.6 g/dL (3.4-5.0); Alkaline Phosphatase 50 U/L (46-116); Anion Gap 8 mmol/L (8-16); Aspartate Amino Transferase 14 U/L (15-37); Bilirubin,Total 0.7 mg/dL (0.00-1.00); Blood Urea Nitrogen 18 mg/dL (7-18); Calcium 8.4 mg/dL (8.5-10.1); Carbon Dioxide 28 mmol/L (21-32); Chloride 107 mmol/L (98-108); Cholesterol 133 mg/dL (0-200); Estimated Glomerular Filt Rate > 60; Glucose 96 mg/dL (70-99); HDL Direct 61 mg/dL (40-60); LDL Cholesterol Calculated 59 mg/dL (<130); Osmolality Calculated 297 mOsm/kg (285-295); Potassium 4.3 mmol/L (3.5-5.1); Prostate Specific Antigen 1.9 ng/mL (< OR = 4.0); Sodium 143 mmol/L (136-145); Thyroid Stimulating Hormone 1.74 uIU/mL (0.36-3.74); Total Protein 6.4 g/dL (6.4-8.2); Triglycerides 64 mg/dL (0-150)
== END 2023-11-11 09:00 | disposition home or self-care (01) ==
PROVIDERS: PCP Internal Medicine; Visit Provider Internal Medicine
DX: E78.5 Hyperlipidemia, unspecified (principal); I10 Essential (primary) hypertension; Z12.5 Encounter for screening for malignant neoplasm of prostate
CPT/HCPCS: 36415; 80053; 80061; 81003; 84153; 84443; 85025; G0103

== ENCOUNTER 2024-11-08 09:54 | Outpatient (CLI) | payer MEDICARE, SELFPAY ==
[2024-11-08 10:10] LABS: Basophils Absolute Auto 0.02 K/mm3 (0.00-0.10); Basophils Percent Auto 0.3 % (0.0-1.0); Eosinophils Percent Auto 1.3 % (1.0-6.0); Hematocrit 45.2 % (37.0-46.0); Hemoglobin 14.8 g/dL (12.4-15.3); Immature Granulocyte Absolute 0.02 K/mm3 (0.00-0.00); Immature Granulocyte Percent A 0.3 % (0.0-0.0); Lymphocytes Absolute Auto 0.74 K/mm3 (1.10-4.50); Lymphocytes Percent Auto 9.9 % (18.0-42.0); Mean Corpuscular HGB Conc 32.7 g/dL (32-36); Mean Corpuscular Hemoglobin 29.8 pg (27.0-31.0); Mean Corpuscular Volume 90.9 fL (78.0-102.0); Mean Platelet Volume 10.7 fl (8.7-11.0); Monocytes Absolute Auto 0.88 K/mm3 (0.10-0.90); Monocytes Percent Auto 11.8 % (2.0-11.0); Neutrophils Absolute Auto 5.72 K/mm3 (1.70-7.20); Neutrophils Percent Auto 76.4 % (50.0-70.0); Platelet Count Result 173 K/mm3 (150-420); Red Blood Count 4.97 M/mm3 (4.70-6.10); White Blood Count 7.5 K/mm3 (4.8-10.8)
[2024-11-08 10:12] LABS: Add Urine Microscopic? YES; Appearance Urine Clear (Clear); Bilirubin Urine Negative (Negative); Blood Urine 1+ (Negative); Color Urine Yellow (Yellow); Glucose Urine UA Negative (Negative); Ketones Urine Negative (Negative); Leukocyte Esterase Ur Negative (Negative); Nitrate Urine Negative (Negative); Protein Urine Negative (Negative); Specific Grav Ur >= 1.030 (1.010-1.020); Urobilinogen Urine 0.2 mg/dL (0.2-1.0)
[2024-11-08 10:18] LABS: Bacteria Urine Trace /hpf; Squamous Epithelial Cell Urine None Seen /hpf (Few); WBC Urine None seen /hpf (0-3)
[2024-11-08 11:11] LABS: Alanine Aminotransferase 30 U/L (16-63); Albumin Level 3.7 g/dL (3.4-5.0); Alkaline Phosphatase 72 U/L (46-116); Anion Gap 7 mmol/L (4-12); Aspartate Amino Transferase 15 U/L (15-37); Bilirubin,Total 0.9 mg/dL (0.00-1.00); Blood Urea Nitrogen 19 mg/dL (7-18); Calcium 8.6 mg/dL (8.5-10.1); Carbon Dioxide 28 mmol/L (21-32); Chloride 106 mmol/L (98-108); Cholesterol 132 mg/dL (0-200); Creatine Kinase 94 U/L (39-308); Estimated Glomerular Filt Rate > 60; Glucose 96 mg/dL (70-99); HDL Direct 55 mg/dL (40-60); LDL Cholesterol Calculated 60 mg/dL (<130); Osmolality Calculated 294 mOsm/kg (285-295); Potassium 4.7 mmol/L (3.5-5.1); Prostate Specific Antigen 1.6 ng/mL (< OR = 4.0); Sodium 141 mmol/L (136-145); Thyroid Stimulating Hormone 2.09 uIU/mL (0.36-3.74); Total Protein 6.9 g/dL (6.4-8.2); Triglycerides 85 mg/dL (0-150)
--- OUTSIDE RECORDS SUMMARY | 2024-11-08 11:25 | XMS_ITS | Referral Summary ---
Author Organization [facility] [address] [facility] [address] [place] [address] Care Team Providers Care Branch Retail Executive Name Role Phone Donald Patel MD Primary Care Provider [phone] Encounters Date Type Department Care Team Description 09/25/2024 8:15 AM WAREHOUSE ASSEMBLY WORKER Office Visit [facility] Cardiology [address] [place] [address] Lee Addison MD Coronary artery disease of [place] artery of [place] heart with stable angina pectoris (Primary Dx); Dyslipidemia; Essential hypertension; History of pulmonary embolus (PE) from Last 3 Months Allergies Active Allergy Reactions Criticality Noted Date Comments Iodine Rash Medium 06/27/2019 Medications aspirin 81 mg chewable tablet Take 1 tablet (81 mg total) by mouth nightly 07/10/20 03 Active multivitamin with minerals (Multiple Vitamin-Mineral s) tablet Take 1 tablet by mouth nightly Active diphenhydrAMINE (BENADRYL) 25 mg capsule Take 1 tablet/capsule (25 mg total) by mouth nightly as needed for sleep Active metoprolol tartrate (LOPRESSOR) 50 mg immediate release tablet TAKE 1 TABLET BY MOUTH EVERY 12 HOURS 180 tablet 3 04/12/20 23 Active Additional Information Patient taking differently: 25 mgoral Every 12 hours, Reported on 09/25/2024 rivaroxaban (XARELTO) 2.5 mg tabletIndicatio ns:coronary artery disease Take 1 tablet (2.5 mg total) by mouth 2 (two) times a day 60 tablet 02/08/20 24 025 Active lisinopriL (PRINIVIL,ZESTR IL) 10 mg tablet TAKE 1 TABLET BY MOUTH EVERY DAY 90 tablet 3 07/29/20 24 Active isosorbide mononitrate ER (IMDUR) 60 mg 24 hr tabletIndicatio ns:Coronary artery disease of [place] artery of [place] heart with stable angina pectoris TAKE 1 TABLET BY MOUTH EVERY DAY 90 tablet 10/15/19 25 Active rosuvastatin (CRESTOR) 20 mg tablet TAKE 1 TABLET BY MOUTH EVERY DAY 90 tablet 1 11/07/19 25 Active nitroglycerin (NITROSTAT) 0.[address] 1 tablet (0.4 mg total) under the tongue every 5 (five) minutes as needed for chest pain (May repeat every 5 minutes up to 3 doses in 15 minutes) May repeat dose q 5 min, up to 3 doses total 25 tablet 11 11/08/19 25 026 Active rosuvastatin (CRESTOR) 20 mg tablet TAKE 1 TABLET BY MOUTH EVERY DAY 90 tablet 1 05/14/20 24 025 Discontinued isosorbide mononitrate ER (IMDUR) 60 mg 24 hr tabletIndicatio ns:Coronary artery disease of [place] artery of [place] heart with stable angina pectoris TAKE 1 TABLET BY MOUTH EVERY DAY 90 tablet 07/19/20 24 025 Discontinued Active Problems Problem Noted Date Diagnosed Date Hx of CABG 04/08/2022 Essential hypertension 04/08/2022 Dyslipidemia 04/08/2022 History of pulmonary embolus (PE) 04/08/2022 Coronary artery disease of [place] artery of [place] heart with stable angina pectoris 02/15/2022 Social History Tobacco Use Types Packs/Day Years Used Date Smoking Tobacco: Former Cigarettes Q uit: 12/17/2018 Smokeless Tobacco: Never Tobacco Cessation:Counseling Given: Not Answered AUDIT-C Answer Date Recorded Q1: How often do you have a drink containing alc ohol? 2-4 times a month 12/17/2021 Q2: How many drinks containi ng alcohol do you have on a typical day when you are drinking? 1 or 2 12/17/2021 Q3: How often do you have si x or more drinks on one occasion? Less than monthly 12/17/2021 Sex and Gender Information Value Date Recorded Sex Assigned at Not on file Legal Sex Male 7:37 AM CDT Gender Identity Not on file Sexual Orientation Not on file Last Filed Vital Signs Vital Sign Reading Time Taken Comments Blood Pressure 124/80 09/25/2024 8:13 AM WAREHOUSE ASSEMBLY WORKER Pulse 70 09/25/2024 8:13 AM WAREHOUSE ASSEMBLY WORKER Temperature - - Respiratory Rate - - Oxygen Saturation 96% 09/25/2024 8:13 AM WAREHOUSE ASSEMBLY WORKER Inhaled Oxygen Concentration - - Weight 78.5 kg (173 lb) 09/25/2024 8:13 AM WAREHOUSE ASSEMBLY WORKER Height 172.7 cm (5' 8 ) 09/25/2024 8:13 AM WAREHOUSE ASSEMBLY WORKER Body Mass Index 26.3 09/25/2024 8:13 AM WAREHOUSE ASSEMBLY WORKER Plan of Treatment Not on file Insurance MEDICARE [facility] [place] [address] Care Teams Branch Retail Executive Relationship Specialty Start Date End Date Donald Patel MD PCP - General Internal Medicine 12/17/21
--- OUTSIDE RECORDS SUMMARY | 2024-11-08 11:25 | XMS_ITS | Encounter Summary ---
Author Organization [facility] Address [address] [place] [address] Care Team Providers Care Diesel Engine Mechanic Name Role Phone Donald Patel MD Primary Care Provider [phone] Nancy Contreras APRN, SCHOOL BUS TECHNICIAN-C Unavailable Trung Matthew MD Unavailable Unavailabl e Encounter Details Date Type Department Care Team (Late st Contact Info) Description 06/20/2019 Hospital Orders Only [facility] Senior Tableau Developer [address] [place], [place] [id number] Raciel Nieto MD Social History Tobacco Use Types Packs/Day Years Used Date Smoking Tobacco: Every Day Cigarettes 0.5 40 Smokeless Tobacco: Never Alcohol Use Standard Drinks/Week Comments Yes 0 (1 standard drink = 0.6 oz pur e alcohol) occasionally Sex and Gender Information Value Date Recorded Sex Assigned at Not on file Legal Sex Male 9:05 PM CDT Gender Identity Not on file Sexual Orientation Not on file documented as of this encounter Plan of Treatment Not on file documented as of this encounter Visit Diagnoses Not on filedocumented in this encounter Care Teams Diesel Engine Mechanic Relationship Specialty Start Date End Date Donald Patel MD [address] [place] [address] PCP - General INTERNAL MEDICINE 06/14/19 Nancy Contreras APRN, SCHOOL BUS TECHNICIAN-C [address] [facility] [address] [place] [id number] Vascular/Burlap Bag Sewer NURSE PRACTITIONER 06/14/19 Trung Matthew MD [address] [facility] [address] [address] Gray Burlap Bag Sewer CARDIOVASCULAR DISEASE 08/27/19 documented as of this encounter
--- OUTSIDE RECORDS SUMMARY | 2024-11-08 11:25 | XMS_ITS | Clinical Summary ---
Author Organization [facility] Address [address] [place] [address] Care Team Providers Care Varnish Supervisor Name Role Phone Donald Patel MD Primary Care Provider [phone] Nancy Contreras APRN, BRICK OR BLOCK MAKER-C Unavailable Trung Matthew MD Unavailable Unavailabl e Allergies Active Allergy Reactions Criticality Noted Date Comments Iodine Rash Low 06/27/2019 Lisinopril Other (see comment) Low 02/06/2016 Patient isn't sure this is an allergy Medications aspirin 81 MG chewable tablet Chew 81 mg by mouth every evening. 07/10/2003 Active niacin CR 500 MG tablet Take 500 mg by mouth nightly at bedtime. 1 06/05/2019 Active pravastatin 80 MG tablet Take 80 mg by mouth nightly at bedtime. at bedtime. 3 04/29/2019 Active multi vitamin/mineral s tablet Take 1 tablet by mouth every evening. Active metoprolol succinate ER 100 MG 24 hr tablet Take 1 tablet (100 mg total) by mouth daily. 30 tablet 3 07/08/2019 Active ELIQUIS 5 MG tablet Take 5 mg by mouth 2 (two) times daily. 11/20/2020 Active Active Problems Problem Noted Date Diagnosed Date Hepatitis C Infection 01/24/2021 History of pulmonary embolism 01/24/2021 Hx of CABG 09/28/2019 Phlebitis 07/07/2019 Volume overload 07/07/2019 Paroxysmal atrial fibrillation ([facility]) 07/07/2019 Overview (07/07/2019): Postop CABG S/P cardiac cath 06/27/2019 Cardiac arrest with ventricu lar fibrillation ([facility]) 08/12/2000 Hyperlipidemia Hypertension Coronary artery disease invo lving [place] coronary artery of [place] heart without angina pectoris Resolved Problems Problem Noted Date Diagnosed Date Resolved Date Current smoker 06/14/2019 09/28/2019 Family History Medical History Relation Comments Stent Cardiac Brother 2 Heart Attack Father black lung Maternal Grandfather Cancer Mother Relation Status Comments Brother 1 Alive Brother 2 Alive Father (Age 62) Maternal Grandfather (Age 75) Maternal Grandmother (Age 65) Mother (Age 78) Paternal Grandfather Paternal Grandmother Sister Alive Social History Tobacco Use Types Packs/Day Years Used Date Smoking Tobacco: Former Cigarettes 0.5 40 1 09/04/1978 - 07/05/2019 Smokeless Tobacco: Never Tobacco Cessation:Ready to Q uit: Yes; Counseling Given: Yes Comments:WILLING TO QUIT Alcohol Use Standard Drinks/Week Comments Yes 0 (1 standard drink = 0.6 oz pur e alcohol) occasionally Sex and Gender Information Value Date Recorded Sex Assigned at Not on file Legal Sex Male 9:05 PM CDT Gender Identity Not on file Sexual Orientation Not on file Last Filed Vital Signs Vital Sign Reading Time Taken Comments Blood Pressure 142/75 12/31/2020 3:32 PM CDT Pulse 69 12/31/2020 3:30 PM CDT Temperature 36.5 C (97.7 F) 07/07/2019 5:16 AM ADVERTISING AGENCY MANAGER Respiratory Rate 20 12/31/2020 3:30 PM CDT Oxygen Saturation 98% 12/31/2020 3:30 PM CDT Inhaled Oxygen Concentration - - Weight 86 kg (189 lb 9.6 oz) 12/31/2020 3:30 PM CDT Height 172.7 cm (5' 8 ) 12/31/2020 3:30 PM CDT Body Mass Index 28.83 12/31/2020 3:30 PM CDT Plan of Treatment Health Maintenance Due Date Last Done Comments ASCVD Statin 1955 Colorectal Cancer Screening Colonoscopy (10 Years) 1955 Pneumococcal Vaccine: 65+ Years (1 of 2 - PCV) 12/29/1959 DTaP, Tdap and Td Vaccines ( 1 - Tdap) 1972 RSV Immunization or 60+ Years (1 - Risk 60-74 years 1-dose series) 2013 Zoster Vaccines (2 of 3) 12/24/2014 10/29/2014 Annual Medicare Wellness Visit 2018 ASCVD LDL 07/01/2020 07/01/2019, 06/05/2019 COVID-19 Vaccine (3 2023-2 5 season) 2024 11/28/2020, 10/31/2020 Influenza Adult (#1) 2024 06/29/2020 Hepatitis C Completed 01/24/2021, 12/31/2020 Meningococcal B Vaccine Aged Out No l onger eligible based on patient's age to complete this topic Meningococcal Vaccine Aged Out No rolando kristian eligible based on patient's age to complete this topic RSV Immunizations Under 20 Months Aged Out No longer eligible b ased on patient's age to complete this topic Procedures Procedure Name Priority Date/Time Associated Diagnosis Comments LIPID PANEL Routine 07/01/2019 6:29 PM ADVERTISING AGENCY MANAGER from Last 3 Months or Most Recently Relevant to Health Maintenance Results * LIPID PANEL (07/01/2019 6:29 PM ADVERTISING AGENCY MANAGER) CHOLESTEROL 156 MG/DL 07/01/2019 7:06 PM [facility] Comment:DESIRABLE: <200 TRIGLYCERIDES 188 MG/DL 07/01/2019 7:06 PM [facility] Comment:150-199 BORDERLINE H IGH HDL 51 >39 MG/DL 07/01/2019 7:06 PM [facility] LDL (CALCULATED) 67 MG/DL 07/01/20 7:06 PM [facility] Comment:<100 OPTIMAL VLDL CALCULATION 38 MG/DL 07/01/20 19 7:06 PM [facility] Comment:REFERENCE RANGE NOT ESTABLISHED CHOL/HDL RATIO 3.1 07/01/2019 7:06 PM [facility] Comment:REFERENCE RANGE NOT ESTABLISHED LDL/HDL 1.3 07/01/2019 7:06 PM [facility] Comment:REFERENCE RANGE NOT ESTABLISHED NON HDL CHOLESTEROL 105 MG/DL 07/01/2019 7:06 PM [facility] Comment:REFERENCE RANGE NOT ESTABLISHED 07/01/2019 6:29 PM ADVERTISING AGENCY MANAGER us Curt Berumen MD LABORATORY Final Resul t [facility] [address] [place] [address], [place] [phone] [id number] from Last 3 Months or Most Recently Relevant to Health Maintenance Insurance [facility] Advance Directives * Full Code (Latest Code Status on File) Date Activated Date Inactivated Comments 07/02/2019 7:02 PM 07/07/2019 5:18 PM * Full Code Date Activated Date Inactivated Comments 06/27/2019 2:01 PM 07/02/2019 7:01 PM Care Teams Varnish Supervisor Relationship Specialty Start Date End Date Donald Patel MD [address] [place] [address] PCP - General INTERNAL MEDICINE 06/14/19 Nancy Contreras APRN, BRICK OR BLOCK MAKER-C [address] [facility] [address] [place] [address] Vascular/Etched Circuit Processor NURSE PRACTITIONER 06/14/19 Trung Matthew MD [address] [facility] [address] [place] [address] Varnell Etched Circuit Processor CARDIOVASCULAR DISEASE 08/27/19
--- OUTSIDE RECORDS SUMMARY | 2024-11-08 11:25 | XMS_ITS | Clinical Summary ---
Author Organization [facility] [address] Address [address] [place] [address] Care Team Providers Care Animal Trainer Name Role Phone Donald Patel MD Primary Care Provider [phone] Allergies Active Allergy Reactions Criticality Noted Date [...] BY MOUTH EVERY DAY 90 tablet 3 03/26/20 24 Active isosorbide mononitrate ER (IMDUR) 60 mg 24 hr tabletIndicatio ns:Coronary artery disease of [place] artery of [place] heart with stable angina pectoris TAKE 1 [...] 24 hr tabletIndicatio ns:Coronary artery disease of [place] artery of [place] heart with stable angina pectoris TAKE 1 TABLET BY MOUTH EVERY DAY 90 tablet 07/19/20 24 025 Discontinued Active Problems Problem Noted Date Diagnosed Date Hx of CABG 04/08/2022 Essential hypertension 04/08/2022 Dyslipidemia 04/08/2022 History of pulmonary embolus (PE) 04/08/2022 Coronary artery disease of n ative artery of [place] heart with stable angina pectoris 02/15/2022 Encounters Date Type Department Care Team Description 09/25/2024 8:15 AM RESPIRATORY CARE PRACTITIONER Office Visit [facility] Cardiology [address] [place] [address] Lee Addison MD Coronary artery disease of [place] artery of [place] heart with stable angina pectoris (Primary Dx); Dyslipidemia; Essential hypertension; History of pulmonary embolus (PE) from Last 3 Months Surgical History Surgery Date Site/Laterality Comments CORONARY ARTERY BYPASS GRAFT 07/02/2019 CORONARY ANGIOPLASTY 08/12/2000 CORONARY ANGIOPLASTY WITH STENT PLACEMENT 11/15/2021 Medical History Medical History Date Comments High blood pressure History of heart attack Hyperlipidemia Pulmonary embolism (HCC) 2019 Family History Medical History Relation Name Comments Heart attack Father Relation Name Status Comments Father (Age 61) Social History Tobacco Use Types Packs/Day Years [...] on file Sexual Orientation Not on file Obstetrics History Last Filed Vital Signs Vital Sign Reading Time Taken Comments Blood Pressure 124/80 09/25/2024 8:13 AM RESPIRATORY CARE PRACTITIONER Pulse 70 09/25/2024 8:13 AM RESPIRATORY CARE PRACTITIONER Temperature - - Respiratory Rate - - Oxygen Saturation 96% 09/25/2024 8:13 AM RESPIRATORY CARE PRACTITIONER Inhaled Oxygen Concentration - - Weight 78.5 kg (173 lb) 09/25/2024 8:13 AM RESPIRATORY CARE PRACTITIONER Height 172.7 cm (5' 8 ) 09/25/2024 8:13 AM RESPIRATORY CARE PRACTITIONER Body Mass Index 26.3 09/25/2024 8:13 AM RESPIRATORY CARE PRACTITIONER Plan of Treatment Health Maintenance Due Date Last Done Comments Colon Cancer Screening-Colonoscopy 1955 Depression Screening 1953 Fall Risk Assessment 1955 Hepatitis C Screening 1955 Hepatitis B Screening 12/29/1971 Zoster Vaccine (2 of 3) 12/24/2014 10/29/2014 Abdominal Aortic Aneurysm (A AA) Screen 2018 Well Visit 65+ 2018 Pneumococcal vaccine 65+ (2 of 2 - PCV) 06/29/2022 06/29/2021 Covid-19 Vaccine (4 - 2023-2 5 season) 2024 08/18/2021, 11/28/2020, 10/31/2020 Influenza Vaccine (#1) 2024 , 06/29/2020, 06/05/2019, Additional history exists DTaP/Tdap/Td Vaccine (2 - Td or Tdap) 10/29/2024 10/29/2014 Insurance MEDICARE [employer] [place] [employer]ICARE [place] [employer] Care Teams Animal Trainer Relationship Specialty Start Date End Date Donald Patel MD PCP - General Internal Medicine 12/17/21
== END 2024-11-08 09:55 | disposition home or self-care (01) ==
LOC: CHSLAB 09:57
PROVIDERS: PCP Internal Medicine; Visit Provider Internal Medicine
DX: R05.9 Cough, unspecified (principal); E78.5 Hyperlipidemia, unspecified; I10 Essential (primary) hypertension; I25.10 Atherosclerotic heart disease of native coronary artery without angina pectoris; Z12.5 Encounter for screening for malignant neoplasm of prostate
CPT/HCPCS: 36415; 80053; 80061; 81001; 82550; 84153; 84443; 85025; G0103

== ENCOUNTER 2024-11-27 08:18 | Outpatient (CLI) | payer MEDICARE, OTHER, SELFPAY ==
--- NOTE | ~2024-11-27 | CT_ITS ---
CT Scan of the Chest without Contrast: Clinical Indication: Lung cancer screening, nicotine dependence Technique: Contiguous sections were acquired throughout the chest without intravenous contrast. Dose reduction technique was used on this scan by utilizing automated exposure control and iterative recon struction technique. The dose-length product (DLP) was 102.18 mGy-cm. COMPARISON: 02/19/2020 Findings: There is no evidence of any significant mediastinal, hilar or axillary lymphadenopathy. Extensive cor onary artery calcifications are present. There is no evidence of pleural or pericardial effusion. There is mild to moderate upper lobe/biapical emphysema, probably paraseptal in appearance. Stable 2 mm right upper lobe pulmonary nodule present (axial image 60). Stable 5 mm right lower lobe pulmonary nodule present (axial image 99). Images through the upper abdomen reveal no abnormalities. Impression: Lung RADS 2: Benign appearance. 12 month follow-up screening CT advised. Reviewed, dictated and finalized at [facility]. Impression: Lung RADS 2: Benign appearance. 12 month follow-up screening CT advised.
--- OUTSIDE RECORDS SUMMARY | 2024-11-27 08:27 | XMS_ITS | Clinical Summary ---
Author Organization [facility] [address] Address [address] [place] [address] Care Team Providers Care Grease Maker Name Role Phone Donald Patel MD Primary Care Provider [phone] Allergies Active Allergy Reactions Criticality Noted Date [...] 24 hr tabletIndicatio ns:Coronary artery disease of [place] artery of [place] heart with stable angina pectoris TAKE 1 [...] 90 tablet 1 05/14/20 24 025 Discontinued Active Problems Problem Noted Date Diagnosed Date Hx of CABG 04/08/2022 Essential hypertension 04/08/2022 Dyslipidemia 04/08/2022 History of pulmonary embolus (PE) 04/08/2022 Coronary artery disease of n ative artery of [place] heart with stable angina pectoris 02/15/2022 Encounters Date Type Department Care Team Description 09/25/2024 8:15 AM COAT EXAMINER Office Visit [facility] Cardiology [address] [facility] [address] [place] [address] Lee Addison MD Coronary artery disease of [place] artery of [place] heart with stable angina pectoris (Primary Dx); [...] Comments Blood Pressure 124/80 09/25/2024 8:13 AM COAT EXAMINER Pulse 70 09/25/2024 8:13 AM COAT EXAMINER Temperature - - Respiratory Rate - - Oxygen Saturation 96% 09/25/2024 8:13 AM COAT EXAMINER Inhaled Oxygen Concentration - - Weight 78.5 kg (173 lb) 09/25/2024 8:13 AM COAT EXAMINER Height 172.7 cm (5' 8 ) 09/25/2024 8:13 AM COAT EXAMINER Body Mass Index 26.3 09/25/2024 8:13 AM COAT EXAMINER Plan of Treatment Health Maintenance Due Date [...] Tdap) 10/29/2024 10/29/2014 Insurance MEDICARE [employer] [place] [employer]ICARE [employer] [place] Care Teams Grease Maker Relationship Specialty Start Date End Date Donald Patel MD PCP - General Internal Medicine 12/17/21
--- OUTSIDE RECORDS SUMMARY | 2024-11-27 08:27 | XMS_ITS | Encounter Summary ---
Author Organization [facility] Address [address] [place] [address] Care Team Providers Care Liner Roll Changer Name Role Phone Donald Patel MD Primary Care Provider [phone] Nancy Contreras APRN, PEDIATRIC REGISTERED NURSE-C Unavailable [phone] Trung Matthew MD Unavailable Unavailabl e Encounter Details Date Type Department Care Team (Late st Contact Info) Description 06/20/2019 Hospital Orders Only [facility] Supervisor Shuttle Preparation [address] [place], [place] [address] Raciel Nieto MD Social History Tobacco Use [...] on filedocumented in this encounter Care Teams Liner Roll Changer Relationship Specialty Start Date End Date Donald Patel MD [address] [place] [address] PCP - General INTERNAL MEDICINE 06/14/19 Nancy Contreras APRN, PEDIATRIC REGISTERED NURSE-C [address] [facility] [address] [place] [phone] Vascular/Big Data Engineer NURSE PRACTITIONER 06/14/19 Trung Matthew MD [address] [facility] [address] [address] Roann Big Data Engineer CARDIOVASCULAR DISEASE 08/27/19 documented as of this encounter
--- OUTSIDE RECORDS SUMMARY | 2024-11-27 08:27 | XMS_ITS | Clinical Summary ---
Author Organization [facility] Address [address] [place] [address] Care Team Providers Care Cone Chocolate Dipper Name Role Phone Donald Patel MD Primary Care Provider [phone] Nancy Contreras APRN, GEAR CHANGER-C Unavailable Trung Matthew MD Unavailable Unavailabl e [...] 07/07/2019 Volume overload 07/07/2019 Paroxysmal atrial fibrillation ([facility]) 07/07/2019 Overview (07/07/2019): Postop CABG S/P cardiac cath 06/27/2019 Cardiac arrest with ventricu lar fibrillation ([facility]) 08/12/2000 Hyperlipidemia Hypertension Coronary artery disease invo lving [place] coronary artery of [place] heart without angina pectoris Resolved Problems Problem [...] 36.5 C (97.7 F) 07/07/2019 5:16 AM PIGMENT PRESSER Respiratory Rate 20 12/31/2020 3:30 PM CDT [...] Comments LIPID PANEL Routine 07/01/2019 6:29 PM PIGMENT PRESSER from Last 3 Months or Most Recently Relevant to Health Maintenance Results * LIPID PANEL (07/01/2019 6:29 PM PIGMENT PRESSER) CHOLESTEROL 156 MG/DL 07/01/2019 7:06 PM [facility] Comment:DESIRABLE: <200 TRIGLYCERIDES 188 MG/DL 07/01/2019 7:06 PM [facility] Comment:150-199 BORDERLINE H IGH HDL 51 >39 MG/DL 07/01/2019 7:06 PM [facility] LDL (CALCULATED) 67 MG/DL 07/01/20 7:06 PM [facility] Comment:<100 OPTIMAL VLDL CALCULATION 38 MG/DL 07/01/20 19 7:06 PM [facility] Comment:REFERENCE RANGE NOT ESTABLISHED CHOL/HDL RATIO 3.1 07/01/2019 7:06 PM [facility] Comment:REFERENCE RANGE NOT ESTABLISHED LDL/HDL 1.3 07/01/2019 7:06 PM [facility] Comment:REFERENCE RANGE NOT ESTABLISHED NON HDL CHOLESTEROL 105 MG/DL 07/01/2019 7:06 PM [facility] Comment:REFERENCE RANGE NOT ESTABLISHED 07/01/2019 6:29 PM PIGMENT PRESSER us Curt Berumen MD LABORATORY Final Resul t [facility] [address] [place] [address], [place] [phone] from Last 3 Months or Most Recently Relevant to Health Maintenance Insurance [facility] Advance Directives * Full Code (Latest Code Status on File) Date Activated Date Inactivated Comments 07/02/2019 7:02 PM 07/07/2019 5:18 PM * Full Code Date Activated Date Inactivated Comments 06/27/2019 2:01 PM 07/02/2019 7:01 PM Care Teams Cone Chocolate Dipper Relationship Specialty Start Date End Date Donald Patel MD [address] [place] [address] PCP - General INTERNAL MEDICINE 06/14/19 Nancy Contreras APRN, GEAR CHANGER-C [address] [facility] [address] [place] [address] Vascular/Diesel Engine I Pipe Fitter NURSE PRACTITIONER 06/14/19 Trung Matthew MD [address] [facility] [address] [place] [address] [place] Diesel Engine I Pipe Fitter CARDIOVASCULAR DISEASE 08/27/19
--- OUTSIDE RECORDS SUMMARY | 2024-11-27 08:27 | XMS_ITS | Referral Summary ---
Author Organization [facility] [address] [facility] [address] Address [address] [place] [address] Care Team Providers Care Mainspring Barrel Assembly Cleaner Name Role Phone Donald Patel MD Primary Care Provider [phone] Encounters Date Type Department Care Team Description 09/25/2024 8:15 AM BOWLING BALL PATCHER Office Visit [facility] Medical [facility] Cardiology [address] [place] [address] Lee Addison MD Coronary artery disease of [place] artery of [place] heart with stable angina pectoris (Primary Dx); [...] 24 hr tabletIndicatio ns:Coronary artery disease of [place] artery of [place] heart with stable angina pectoris TAKE 1 [...] artery disease of n ative artery of [place] heart with stable angina pectoris 02/15/2022 Social [...] Comments Blood Pressure 124/80 09/25/2024 8:13 AM BOWLING BALL PATCHER Pulse 70 09/25/2024 8:13 AM BOWLING BALL PATCHER Temperature - - Respiratory Rate - - Oxygen Saturation 96% 09/25/2024 8:13 AM BOWLING BALL PATCHER Inhaled Oxygen Concentration - - Weight 78.5 kg (173 lb) 09/25/2024 8:13 AM BOWLING BALL PATCHER Height 172.7 cm (5' 8 ) 09/25/2024 8:13 AM BOWLING BALL PATCHER Body Mass Index 26.3 09/25/2024 8:13 AM BOWLING BALL PATCHER Plan of Treatment Not on file Insurance [place] [employer] [place] MEDICARE [facility] Care Teams Mainspring Barrel Assembly Cleaner Relationship Specialty Start Date End Date Donald Patel MD PCP - General Internal Medicine 12/17/21
== END 2024-11-27 08:19 | disposition home or self-care (01) ==
PROVIDERS: PCP Internal Medicine; Visit Provider Internal Medicine
DX: Z12.2 Encounter for screening for malignant neoplasm of respiratory organs (principal); Z87.891 Personal history of nicotine dependence
CPT/HCPCS: 71271